=== PATIENT | female | born 1930 | race Caucasian/White ===

== ENCOUNTER 2016-10-01 20:25 | Inpatient (IN) | payer OTHER ==
--- NOTE | 2016-10-01 20:33 | DR.GENAD ---
HPI - Complaint/Symptoms Chief Complaint Doctors Comments: Daughter states she came home from work and found her on the floor with a cereal box on the floor with her with problem with her speech, right facial weakness; talking out of her head and not able to stand. States she left for work around 6am and the patient was still asleep and she usually gets up around 8am and have breakfast then clean the kitchen. States patient states she was on the floor for a long time. Family do not think she ate or took her medicines today. She is a patient of Dr. Ponce and had a stroke 2003 and was on Plavix and aspirin but the Plavix was stopped 3-4 years and the aspirin was stopped several months ago. She is a diabetic taking pills for her glucose. 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 Family denies any urine or fecal incontinence. - Nurses notes reviewed Nurses Notes Review: Yes - Source History Provided: Family Member - Mode of Arrival Mode of Arrival: EMS - Duration Duration: Constant How lon Duration: Hours - Location Location: right sided weakness hands and legs - Severity Severity: Moderate - Modifying Factors Worsens:: nothing Improves:: nothing PMH - PMH Past Medical History: Diabetes, Hypertension Past Surgical History: Yes Surgical History: Angioplasty/Stents - Family History Family Medical History: Cancer, [place] - Social History Do you use any recreational Drugs:: No ROS - Review of Systems Constitutional: No Symptoms Reported, Weakness Eyes: No Symptoms Reported ENTM: No Symptoms Reported Respiratoy: No Symptoms Reported Cardiovascular: No Symptoms Reported Gastrointestinal/Abdominal: No Symptoms Reported Genitourinary: No Symptoms Reported Neurological: No Symptoms Reported Musculoskeletal: No Symptoms Reported Integumentary: No Symptoms Reported Hematologic/Lymphatic: No Symptoms Reported Endocrine: No Symptoms Reported Psychiatric: No Symptoms Reported PE - Vital Signs Vitals: Temperature 98.8 F Pulse Rate 100 Respiratory Rate 16 Blood Pressure 126/85 O2 Sat by Pulse Oximetry 96 - General Limitations: Altered Mental Status (lethargic; follows command; responds to verbal stimuli) General Appearance: Lethargic, In Distress (moderate) - Head Head Exam: Normal Inspection, Atraumatic, Normocephalic - Eyes Eye exam: Normal Appearance, PERRL, EOMI. negative: Scleral Icterus, Conjunctival Injection, Nystagmus, Miosis, Mydrasis, Periorbital Swelling, Periorbital Tenderness, Other - ENT ENT Exam: Normal Exam, Normal Oropharynx, Normal External Ear Exam, Mucous Membranes Moist, TM's Normal Bilaterally (patient with dentures) External Ear Exam: Normal External Inspection TM/Canal Exam: Bilateral Normal Nose Exam: Normal Nose Exam Mouth Exam: Normal Inspection. negative: Drooling (right facial weakness) Throat Exam: Normal Inspection - Neck Neck Exam: Normal Inspection, Full ROM, Trachea Midline. negative: Tenderness, Meningismus, Lymphadenopathy, Thyromegaly, Other - Chest Chest Inspection: Normal Inspection, Symmetric Chest Wall Rise - Respiratory Respiratory Exam: Normal Lung Sounds Bilat Respiratory Exam: Bilateral Clear to Auscultation - Cardiovascular Cardiovascular Exam: Regular Rate, Normal Rhythm, Normal Heart Sounds, Systolic Murmur - Abdominal Exam Abdominal Exam: Normal Inspection, Normal Bowel Sounds, Soft. negative: Distention, Tenderness, Guarding, Rebound, Rigidity, Dimnished Bowel Sounds, Hyperactive Bowel Sounds, Hypoactive Bowel Sounds, Organomegaly, Trauma, Incision, Ascites, Mass, Bruit, Pulsatile Mass, Hernia, Other Abdominal Tenderness: negative: RUQ, RLQ, LUQ, LLQ, Epigastrium, Suprapubic, Diffuse, Mild, Moderate, Severe, Other - Extremities Extremities Exam: Normal Inspection, Normal Capillary Refill. negative: Full ROM (right hemiparesis hand and legs), Edema, Joint Swelling, Calf Tenderness - Back Back Exam: Normal Inspection, Full ROM - Neurologic Neurological Exam: Motor Sensory Deficit (right hemiparesis; hand and leg weakness, unable to lift legs from bed on right side). negative: Alert ( lethargic), Oriented X3 (responds to name), CN II-XII Intact (speech aphasia; right hemiiplegis), Normal Gait (gait not tested), Reflexes Normal (bilateral bibanski) - Psychiatric Psychiatric Exam: Normal Affect, Normal Mood - Skin Skin Exam: Warm, Dry, Intact, Normal Color ROR - Labs Reviewed Laboratory Results Reviewed?: Yes (all labs and x-ray results reviewed and discussed with family) Result Diagrams: 10/01/16 20:25 10/01/16 20:25 Laboratory: WBC 20.0 X10^3/uL (3.6-10.0) H 10/01/16 20:25 RBC 5.04 X10^6/uL (3.5-5.4) 10/01/16 20:25 Hgb 14.6 g/dL (12.0-16.0) 10/01/16 20: Hct 44.5 % (36.0-47.0) 10/01/16 20: MCV 88.4 fL (80.0-100.0) 10/01/16 20: MCH 29.1 pg (27.0-34.0) 10/01/16 20: MCHC 32.9 g/dL (33.0-35.0) L 10/01/16 20: RDW 13.2 % (11.6-16.5) 10/01/16: Plt Count 275 X10^3/uL (150.0-450.0) 10/01/16: Plt Count Comment Adequate (ADEQUATE) 10/01/16: MPV 9.4 fL (7.4-11.0) 10/01/16 20: Neut % 94.8 % (42.0-75.0) H 10/01/16 20: Lymph % 2.9 % (21.0-51.0) L 10/01/16 20: [place] % 2.0 % (0.0-13.0) 10/01/16 20: Eos % 0.0 % (0.9-2.9) L 10/01/16 20: Baso % 0.3 % (0.2-1.0) 10/01/16 20: Neut # 18.9 x10^3/uL (2.2-4.8) H 10/01/16 20: Lymph # 0.6 X10^3/uL (1.3-2.9) L 10/01/16 20: [place] # 0.4 x10^3/uL (0.3-0.8) 10/01/16 20: Eos # 0.0 x10^3/uL (0.0-0.2) 10/01/16 20: Baso # 0.1 X10^3/uL (0.0-0.1) 10/01/16 20: Absolute Nucleated RBC 0.0 /100WBC 10/01/16 20:25 Total Counted 100 10/01/16 20:25 Neutrophils % (Manual) 97 % (39-76) H 10/01/16 20:25 Lymphocytes % (Manual) 3 % (13-43) L 10/01/16 20:25 Plt Morphology Comment Normal (NORMAL) 10/01/16 20:25 RBC Morphology Normal (NORMAL) 10/01/16 20:25 INR Target Range - 10/01/16 20:25 INR 1.09 (0.8-1.3) 10/01/16 20:25 PTT 25.3 SECONDS (22.9-36.5) 10/01/16 20:25 PTT Comment - 10/01/16 20:25 Sodium 128 mmol/L (136-145) L 10/01/16 20:25 Corrected Sodium 138 mmol/L (136-145) 10/01/16 20:25 Potassium 4.5 mmol/L (3.5-5.1) 10/01/16 20:25 Chloride 92 mmol/L (98-107) L 10/01/16 20:25 Carbon Dioxide 22.8 mmol/L (21-32) 10/01/16 20:25 BUN 32 mg/dL (7-18) H 10/01/16 20:25 Creatinine 1.99 mg/dL (0.55-1.02) H 10/01/16 20:25 Est GFR (MDRD) Af Amer 31 (>60) L 10/01/16 20:25 Est GFR (MDRD) Non-Af 25 (>60) L 10/01/16 20:25 Glucose 507 mg/dL (65-99) H* 10/01/16 20:25 Calcium 9.7 mg/dL (8.5-10.1) 10/01/16 20:25 Corrected Calcium TNP 10/01/16 20:25 Magnesium 1.5 mg/dL (1.7-2.9) L 10/01/16 20:25 Total Bilirubin 0.90 mg/dL (0.2-1.0) 10/01/16 20:25 AST 27 Units/L (15-37) 10/01/16 20:25 ALT 17 Units/L (12-78) 10/01/16 20:25 Alkaline Phosphatase 99 Units/L (46-116) 10/01/16 20:25 Creatine Kinase 60 Units/L (26-192) 10/01/16 20:25 CK-MB (CK-2) 1.0 ng/mL (0-4.0) 10/01/16 20:25 CK/CKMB % Calc 1.7 % (<4) 10/01/16 20:25 Troponin I < 0.02 ng/mL (0-1.5) 10/01/16 20:25 Total Protein 8.5 g/dL (6.4-8.2) H 10/01/16 20:25 Albumin 3.7 g/dL (3.4-5.0) 10/01/16 20:25 Globulin 4.8 g/dL (2.5-4.5) H 10/01/16 20:25 Albumin/Globulin Ratio 0.8 Ratio (1.1-2.1) L 10/01/16 20:25 Specimen Type Catherized urine 10/01/16 22:00 Urine Color Yellow (YELLOW) 10/01/16 22:00 Urine Appearance Clear (CLEAR) 10/01/16 22:00 Urine pH 5.0 (5.0 - 8.0) 10/01/16 22:00 Ur Specific [place] 1.015 (1.000-1.030) 10/01/16 22:00 Urine Protein 2+ (NEGATIVE) 10/01/16 22:00 Urine Glucose (UA) 4+ (NEGATIVE) 10/01/16 22:00 Urine Ketones 2+ (NEGATIVE) 10/01/16 22:00 Urine Occult Blood 1+ (NEGATIVE) 10/01/16 22:00 Urine Nitrite Negative (NEGATIVE) 10/01/16 22:00 Urine Bilirubin Negative (NEGATIVE) 10/01/16 22:00 Urine Urobilinogen Normal (NORMAL) 10/01/16 22:00 Ur Leukocyte Esterase Negative (NEGATIVE) 10/01/16 22:00 Urine RBC 0-3 /HPF (NEGATIVE) 10/01/16 22:00 Urine WBC 0-3 /HPF (NEGATIVE) 10/01/16 22:00 Ur Squamous Epith Cells Rare /HPF (NEGATIVE) 10/01/16 22:00 Urine Bacteria Negative /HPF (NEGATIVE) 10/01/16 22:00 Ur Culture Indicated? No/not indicated 10/01/16 22:00 Urine Opiates Screen Negative (NEG=<300) 10/01/16 22:00 Urine Methadone Screen Negative (NEG=<300) 10/01/16 22:00 Ur Barbiturates Screen Negative (NEG=<200) 10/01/16 22:00 Ur Phencyclidine Scrn Negative (NEG=<25) 10/01/16 22:00 Ur Amphetamines Screen Negative (NEG=<1000) 10/01/16 22:00 U Benzodiazepines Scrn Negative (NEG=<200) 10/01/16 22:00 Urine Cocaine Screen Negative (NEG=<300) 10/01/16 22:00 U Marijuana (THC) Screen Negative (NEG=<50) 10/01/16 22:00 - XRAY XRAY Interpreted by: Radiologist (CT head: Subacute infarct of left thalamus, occipital lobe parietal lobe and temporal oobe. Chronic periventricular white matter disease.) XRAY Findings: CXR: Chronic celso parenchymal changes bilaterally, non-specific, - Diagnosis Discharge Problem: Acute thromboembolic cerebrovascular accident, Right hemiplegia, Hyperosmolar non-ketotic state in patient with type 2 diabetes mellitus, Hyponatremia, Atrial fibrillation with rapid ventricular response Leukocytosis Qualifiers: Leukocytosis type: unspecified Qualified Code(s): D72.829 - Elevated white blood cell count, unspecified - Discharge Plan Disposition: ADMITTED INPATIENT Condition: Stable - Follow ups/Referrals Follow ups/Referrals: NFD,None [STAFF PHYSICIAN] - 3 days - Instructions
[2016-10-01 20:40] LABS: BASOPHILS # (AUTO) 0.1 X10^3/uL (0.0-0.1); BASOPHILS % (AUTO) 0.3 % (0.2-1.0); HEMATOCRIT 44.5 % (36.0-47.0); HEMOGLOBIN 14.6 g/dL (12.0-16.0); LYMPHOCYTES # (AUTO) 0.6 X10^3/uL (1.3-2.9); LYMPHOCYTES % (AUTO) 2.9 % (21.0-51.0); MEAN CORPUSCULAR HEMOGLOBIN 29.1 pg (27.0-34.0); MEAN CORPUSCULAR HGB CONC 32.9 g/dL (33.0-35.0); MEAN CORPUSCULAR VOLUME 88.4 fL (80.0-100.0); MEAN PLATELET VOLUME 9.4 fL (7.4-11.0); MONOCYTES # (AUTO) 0.4 x10^3/uL (0.3-0.8); NEUTROPHILS # (AUTO) 18.9 x10^3/uL (2.2-4.8); NEUTROPHILS % (AUTO) 94.8 % (42.0-75.0); PLATELET COUNT 275 X10^3/uL (150.0-450.0); RED BLOOD COUNT 5.04 X10^6/uL (3.5-5.4); RED CELL DISTRIBUTION WIDTH 13.2 % (11.6-16.5)
[2016-10-01 20:52] LABS: PLATELET MORPHOLOGY COMMENT NORMAL (NORMAL)
[2016-10-01 20:57] LABS: ALANINE AMINOTRANSFERASE 17 Units/L (12-78); ALBUMIN 3.7 g/dL (3.4-5.0); ALKALINE PHOSPHATASE 99 Units/L (46-116); ASPARTATE AMINO TRANSFERASE 27 Units/L (15-37); BLOOD UREA NITROGEN 32 mg/dL (7-18); CALCIUM 9.7 mg/dL (8.5-10.1); CARBON DIOXIDE 22.8 mmol/L (21-32); CHLORIDE 92 mmol/L (98-107); CKMB % 1.7 % (<4); COR NA(FOR HYPERGLY) 138 mmol/L (136-145); CREATINE KINASE 60 Units/L (26-192); CREATININE 1.99 mg/dL (0.55-1.02); MAGNESIUM 1.5 mg/dL (1.7-2.9); SODIUM 128 mmol/L (136-145); TOTAL PROTEIN 8.5 g/dL (6.4-8.2); TROPONIN I < 0.02 ng/mL (0-1.5); eGFR BLACK RACES 31 (>60); eGFR NON BLACK RACES 25 (>60)
[2016-10-01 21:00] LABS: GLUCOSE 507 mg/dL (65-99)
--- NOTE | 2016-10-01 21:13 | CT ---
HISTORY: Altered mental status Study: CT brain without contrast Comparison: None Technique: Multiple axial images of the brain were obtained from the skull base to the vertex without administr ation of IV contrast. Findings: No acute intraparenchymal hemorrhage or mass can be identified. No extra-axial fluid collections ar e seen. There is a large low-attenuation area in the left posterior parietal lobe, thalamus left oc cipital lobe and temporal lobe compatible with a subacute infarct. There is also an older area of en cephalomalacia in the left temporoparietal region as well.. The ventricular system is symmetric and nondilated. There is chronic periventricular white matter disease observed and age-appropriate gen eralized atrophy. IMPRESSION: 1. Subacute infarct involving the left thalamus, occipital lobe parietal lobe and appear temporal l obe as above. Followup MRI would be of benefit definitive assessment. 2. Chronic periventricular white matter disease likely on the basis of small vessel ischemic change . 3. Age-appropriate atrophic changes are seen. Reported By:
--- NOTE | 2016-10-01 21:14 | RAD ---
EXAM: Chest X-ray INDICATION: Altered mental status COMPARISION: No prior TECHNIQUE: Single view FINDINGS: Chronic lung parenchymal changes are present bilaterally. No focal lung parenchymal abnormality rochelle ntified. The cardiac silhouette is mildly enlarged. The mediastinum is normal. The regional skele ton is intact. IMPRESSION: Chronic lung parenchymal changes are seen bilaterally, non-specific. No acute abnormality. Reported By:
[2016-10-01] MEDS ORDERED: NS 1000 ML 1,000 ML IV ONE (21:39)
[2016-10-01] MEDS ORDERED: HUMULIN R IV STA (21:39)
[2016-10-01 22:14] LABS: BILIRUBIN,URINE NEGATIVE (NEGATIVE); BLOOD/HEMOGLOBIN,URINE 1+ (NEGATIVE); GLUCOSE, URINE 4+ (NEGATIVE); KETONES,URINE 2+ (NEGATIVE); LEUKOCYTE ESTERASE ,URINE NEGATIVE (NEGATIVE); NITRITES,URINE NEGATIVE (NEGATIVE); PROTEIN,URINE 2+ (NEGATIVE); UROBILINOGEN,URINE NORMAL (NORMAL)
[2016-10-01 22:27] LABS: APPEARANCE,URINE CLEAR (CLEAR); BACTERIA,URINE NEGATIVE /HPF (NEGATIVE); COLOR,URINE YELLOW (YELLOW); RBC,URINE 0-3 /HPF (NEGATIVE); SQUAMOUS EPITHELIAL CELL,UR RARE /HPF (NEGATIVE)
[2016-10-01] MEDS ORDERED: LANTUS SC ONE (22:46)
[2016-10-01] MEDS ORDERED: HUMULIN R 100 UNITS in NS 100 ML IV 100 ML IV PRN (22:48)
[2016-10-01] MEDS ORDERED: NS 100 ML IV 100 ML IV ONE (23:38)
[2016-10-02] MEDS ORDERED: HUMULIN R IV PRN
[2016-10-02] MEDS ORDERED: MAGNESIUM SULFATE 1 GM/100 ML IV PRN ×2
[2016-10-02] MEDS ORDERED: NS + KCL 40 MEQ/L 1,000 ML IV PRN
[2016-10-02] MEDS ORDERED: NS 1000 ML 1,000 ML IV PRN
[2016-10-02] MEDS ORDERED: SODIUM BICARBONATE 8.4% INJ ADULT IVP PRN
[2016-10-02] MEDS ORDERED: D5 1/2 NS + KCL 20 MEQ/L 1,000 ML IV PRN
[2016-10-02] MEDS ORDERED: D50W ABBOJECT SYR IV PRN ×2 (00:06)
[2016-10-02] MEDS ORDERED: HUMULIN R 100 UNITS in NS 100 ML IV 100 ML IV PRN ×3 (00:06)
[2016-10-02 01:23] VITALS: BMI 29.0
[2016-10-02] MEDS: LOVENOX INJ 80 MG SYR SC SCH ×2 (01:33→09:36)
[2016-10-02] MEDS: NS 1000 ML 1,000 ML IV SCH ×2 (03:00→16:45)
[2016-10-02 05:56] LABS: BASOPHILS # (AUTO) 0.1 X10^3/uL (0.0-0.1); BASOPHILS % (AUTO) 0.3 % (0.2-1.0); EOSINOPHILS % (AUTO) 0.1 % (0.9-2.9); HEMATOCRIT 36.9 % (36.0-47.0); HEMOGLOBIN 12.4 g/dL (12.0-16.0); LYMPHOCYTES % (AUTO) 4.7 % (21.0-51.0); MEAN CORPUSCULAR HEMOGLOBIN 29.1 pg (27.0-34.0); MEAN CORPUSCULAR HGB CONC 33.5 g/dL (33.0-35.0); MEAN CORPUSCULAR VOLUME 86.8 fL (80.0-100.0); MEAN PLATELET VOLUME 9.2 fL (7.4-11.0); MONOCYTES # (AUTO) 1.1 x10^3/uL (0.3-0.8); MONOCYTES % (AUTO) 5.2 % (0.0-13.0); NEUTROPHILS # (AUTO) 18.5 x10^3/uL (2.2-4.8); NEUTROPHILS % (AUTO) 89.7 % (42.0-75.0); PLATELET COUNT 266 X10^3/uL (150.0-450.0); RED BLOOD COUNT 4.25 X10^6/uL (3.5-5.4); RED CELL DISTRIBUTION WIDTH 13.1 % (11.6-16.5)
[2016-10-02 05:59] LABS: WHITE BLOOD COUNT 20.6 X10^3/uL (3.6-10.0)
[2016-10-02 06:03] LABS: MAGNESIUM 1.4 mg/dL (1.7-2.9); PHOSPHORUS 2.6 mg/dL (2.6-4.7)
[2016-10-02 06:07] LABS: CHOL/HDL RATIO 6.1 (0.0-5.0)
[2016-10-02] MEDS ORDERED: HUMULIN R ONE (06:31)
[2016-10-02 06:35] LABS: HEMOGLOBIN A1C 10.1 % (4.5-6.2)
[2016-10-02 06:37] LABS: ALBUMIN 3.3 g/dL (3.4-5.0); CALCIUM 9.2 mg/dL (8.5-10.1); CARBON DIOXIDE 22.2 mmol/L (21-32); COR CA(FOR HYPOALB) 9.8 mg/dL (8.5-10.1); CREATININE 1.96 mg/dL (0.55-1.02); TOTAL PROTEIN 6.9 g/dL (6.4-8.2)
[2016-10-02] MEDS: HUMULIN R SUBCUT PRN ×2 (06:49→21:01)
[2016-10-02] MEDS: ROCEPHIN VIAL 1 GM 1 GM in NS 50 ML IV + SPIKE MINIBAG* 50 ML IV SCH (09:36)
--- NOTE | 2016-10-02 14:30 | CT ---
HISTORY: Neck pain and injury. Study: CT cervical spine without contrast Comparison: none. Technique: Multiple axial images of the C-spine were obtained without the administration of IV cont rast. Sagittal and coronal reformats were performed and reviewed. Findings: Alignment of the cervical spine is within normal limits. No evidence for acute fracture or subluxat ion can be identified. No central canal compromise by bony osteophyte formation or soft tissue comp onents can be identified. There is moderate degenerative, diffuse, cervical spondylosis and diffuse, moderate degenerative cervical facet joint DJD observed. No locked facet joint is seen. There is no visible subluxation or posterior element abnormality of the cervical spine. No lytic bony lesions o r endplate erosive changes are seen. The surrounding paraspinous and C-spine soft tissues are unrema rkable in their noncontrasted appearance. IMPRESSION: 1. Negative exam of the cervical spine for acute fracture or compression deformity. 2. Moderate cervical spondylosis and degenerative facet joint DJD. Reported By:
[2016-10-02] MEDS ORDERED: SNACK - Diabetic Appropriate PO SCH ×3 (20:00)
[2016-10-02] MEDS: SNACK - Diabetic Appropriate PO SCH (20:35)
[2016-10-02] MEDS: ELIQUIS PO SCH (20:40)
[2016-10-02] MEDS: LANTUS SC SCH (20:41)
[2016-10-03] MEDS: NS 1000 ML 1,000 ML IV SCH ×3 (03:37→22:14)
[2016-10-03] MEDS: HUMULIN R SUBCUT PRN ×3 (06:02→17:27)
[2016-10-03 07:06] LABS: CALCIUM 8.6 mg/dL (8.5-10.1); CARBON DIOXIDE 21.6 mmol/L (21-32); CREATININE 1.9 mg/dL (0.55-1.02)
[2016-10-03 07:42] LABS: BASOPHILS # (AUTO) 0.1 X10^3/uL (0.0-0.1); BASOPHILS % (AUTO) 0.4 % (0.2-1.0); HEMOGLOBIN 12.1 g/dL (12.0-16.0); LYMPHOCYTES # (AUTO) 1.1 X10^3/uL (1.3-2.9); LYMPHOCYTES % (AUTO) 6.9 % (21.0-51.0); MEAN CORPUSCULAR HEMOGLOBIN 29.1 pg (27.0-34.0); MEAN CORPUSCULAR HGB CONC 33.7 g/dL (33.0-35.0); MEAN CORPUSCULAR VOLUME 86.3 fL (80.0-100.0); MEAN PLATELET VOLUME 9.2 fL (7.4-11.0); MONOCYTES # (AUTO) 0.7 x10^3/uL (0.3-0.8); MONOCYTES % (AUTO) 4.3 % (0.0-13.0); NEUTROPHILS # (AUTO) 14.1 x10^3/uL (2.2-4.8); NEUTROPHILS % (AUTO) 88.4 % (42.0-75.0); PLATELET COUNT 210 X10^3/uL (150.0-450.0); RED BLOOD COUNT 4.17 X10^6/uL (3.5-5.4); RED CELL DISTRIBUTION WIDTH 13.3 % (11.6-16.5)
[2016-10-03] MEDS: ELIQUIS PO SCH ×3 (08:18→22:14)
[2016-10-03] MEDS: ROCEPHIN VIAL 1 GM 1 GM in NS 50 ML IV + SPIKE MINIBAG* 50 ML IV SCH (08:24)
[2016-10-03 08:44] LABS: ALBUMIN 2.8 g/dL (3.4-5.0); BILIRUBIN,DIRECT 0.15 mg/dL (0-0.2); MAGNESIUM 1.6 mg/dL (1.7-2.9); TOTAL PROTEIN 6.8 g/dL (6.4-8.2)
[2016-10-03] MEDS ORDERED: PLAVIX PO SCH (10:00)
[2016-10-03] MEDS ORDERED: ELIQUIS PO SCH (10:00)
[2016-10-03] MEDS ORDERED: PHARMACY CONSULT - DOSE _____ XX SCH (10:00)
[2016-10-03] MEDS ORDERED: NORVASC TAB 5 MG PO SCH (10:00)
[2016-10-03] MEDS: LOVENOX INJ 80 MG SYR SC SCH ×2 (10:08→20:52)
[2016-10-03] MEDS ORDERED: LOPRESSOR INJ 5 MG AMP ONE (11:39)
[2016-10-03] MEDS: LOPRESSOR INJ 5 MG AMP IVP SCH ×3 (11:45→20:51)
--- NOTE | 2016-10-03 12:37 | PCM.PROG ---
Progress Note - Progress Note for Day of Date: 10/03/16 - Subjective Subjective: PATIENT IS ADMITTED WITH ACUTE CVA. BRAIN CT REPORTS A SIGNIFICANT STROKE INVOLVING THE LEFT THALMUS, OCCIPITAL LOBE, PARIETAL LOBE, AND TEMPORAL LOBE. PATIENT RESTS IN BED AND DOESN'T RESPOND TO VERBAL OR TACTILE STIMULI. PATIENT GAZES TO HER LEFT AND NEVER MAKES EYE CONTACT WHEN SPOKEN TO. PATIENT HAS PROFOUND IMPAIRED ORAL-MOTOR FUNCTION. SPEECH THERAPY IS RECOMMENDING TO HOLD PATIENT NPO AT THIS TIME. PATIENT IS NOTED WITH RIGHT HEMISPATIAL NEGLECT. DAUGHTER AT BEDSIDE. WE DISCUSS FURTHER TREATMENT, DAUGHTER VOICES UNDERSTANDING. CBC WNL EXCEPT: WBC 16.0. CMP WNL EXCEPT: BUN/CREAT 34/1.90, GFR 27, GLUCOSE 232, MAGNESIUM 1.6, ALBUMIN 2.8. WE WILL HOLD PO MEDICATIONS, START LOVENOX, AND OBTAIN MRI OF BRAIN TODAY. WE WILL CONTINUE TO MONITOR AND FOLLOW UP IN AM WITH LABS. - Past Medical Family Social History Past Med/Fam/Surg Hx: No changes since H&P Allergies: Allergies No Known Drug Allergy Allergy (Verified 10/01/16 23:50) - Review of Systems ROS: No change since H&P - Vital Signs and I&O's Vital Signs: Temperature 97.5 F Pulse Rate [Right Brachial] 95 Respiratory Rate 19 Blood Pressure [Right Arm] 170/81 Blood Pressure 188/89 O2 Sat by Pulse Oximetry 100 Intake and Output: Intake & Output 10/01/16 10/02/16 10/03/16 10/04/16 10:59 11:59 11:59 11:59 Intake Total 3950 Output Total 1900 Balance 2049 - Physical Exam Oriented: Unable to test Eyes: Normal. negative: Discharge, Redness Ear: Normal. negative: Swelling, Ecchymosis, Hemotypanum, Abrasion, Laceration Nose: Normal. negative: Injected, Discharge, Blood Throat: Dry. negative: Tonsillar Hypertrophy, Red, Exudate Respiratory: Normal Cardiovascular: Irregular (Irreg, irreg). negative: Murmur, Edema : Normal. negative: Dysuria, Hematuria, Frequency, Discharge, Bleeding, Auscultation: Bowel Sounds: Decreased. negative: Bruit Palpation: Normal. negative: Spleen Enlarged, Liver Enlarged, Mass Pulsatile Tenderness: Normal. negative: Rebound, Guarding, Rigidity Skin: Decreased Turgur. negative: Diaphoresis, Wound, Bruising, Ecchymosis Musculoskeletal: Instability (Non-ambulatory) Mood Description: Flat Affect: Flat Speech Pattern: Aphasic - Laboratory and Diagnostics Result Diagrams: 10/03/16 06:50 10/03/16 06:50 Labs: Laboratory WBC 16.0 X10^3/uL (3.6-10.0) H 10/03/16 06:50 RBC 4.17 X10^6/uL (3.5-5.4) 10/03/16 06:50 Hgb 12.1 g/dL (12.0-16.0) 10/03/16 06:50 Hct 36.0 % (36.0-47.0) 10/03/16 06:50 MCV 86.3 fL (80.0-100.0) 10/03/16 06:50 MCH 29.1 pg (27.0-34.0) 10/03/16 06:50 MCHC 33.7 g/dL (33.0-35.0) 10/03/16 06:50 RDW 13.3 % (11.6-16.5) 10/03/16 06:50 Plt Count 210 X10^3/uL (150.0-450.0) 10/03/16 06:50 Plt Count Comment Adequate (ADEQUATE) 10/01/16 20:25 MPV 9.2 fL (7.4-11.0) 10/03/16 06:50 Neut % 88.4 % (42.0-75.0) H 10/03/16 06:50 Lymph % 6.9 % (21.0-51.0) L 10/03/16 06:50 [place] % 4.3 % (0.0-13.0) 10/03/16 06:50 Eos % 0.0 % (0.9-2.9) L 10/03/16 06:50 Baso % 0.4 % (0.2-1.0) 10/03/16 06:50 Neut # 14.1 x10^3/uL (2.2-4.8) H 10/03/16 06:50 Lymph # 1.1 X10^3/uL (1.3-2.9) L 10/03/16 06:50 [place] # 0.7 x10^3/uL (0.3-0.8) 10/03/16 06:50 Eos # 0.0 x10^3/uL (0.0-0.2) 10/03/16 06:50 Baso # 0.1 X10^3/uL (0.0-0.1) 10/03/16 06:50 Absolute Nucleated RBC 0.0 /100WBC 10/03/16 06:50 Total Counted 100 10/01/16 20:25 Neutrophils % (Manual) 97 % (39-76) H 10/01/16 20:25 Lymphocytes % (Manual) 3 % (13-43) L 10/01/16 20:25 Plt Morphology Comment Normal (NORMAL) 10/01/16 20:25 RBC Morphology Normal (NORMAL) 10/01/16 20:25 INR Target Range - 10/01/16 20:25 INR 1.09 (0.8-1.3) 10/01/16 20:25 PTT 25.3 SECONDS (22.9-36.5) 10/01/16 20:25 PTT Comment - 10/01/16 20:25 Fibrinogen 438 mg/dL (239-489) 10/02/16 05:25 Sodium 141 mmol/L (136-145) 10/03/16 06:50 Corrected Sodium 144 mmol/L (136-145) 10/03/16 06:50 Potassium 3.6 mmol/L (3.5-5.1) 10/03/16 06:50 Chloride 107 mmol/L (98-107) 10/03/16 06:50 Carbon Dioxide 21.6 mmol/L (21-32) 10/03/16 06:50 BUN 34 mg/dL (7-18) H 10/03/16 06:50 Creatinine 1.90 mg/dL (0.55-1.02) H 10/03/16 06:50 Est GFR (MDRD) Af Amer 32 (>60) L 10/03/16 06:50 Est GFR (MDRD) Non-Af 27 (>60) L 10/03/16 06:50 Glucose 232 mg/dL (65-99) H 10/03/16 06:50 Hemoglobin A1c 10.1 % (4.5-6.2) H 10/02/16 05:25 Calcium 8.6 mg/dL (8.5-10.1) 10/03/16 06:50 Corrected Calcium 9.8 mg/dL (8.5-10.1) 10/02/16 05:25 Phosphorus 2.6 mg/dL (2.6-4.7) 10/02/16 05:25 Magnesium 1.6 mg/dL (1.7-2.9) L 10/03/16 06:50 Total Bilirubin 0.50 mg/dL (0.2-1.0) 10/03/16 06:50 Direct Bilirubin 0.15 mg/dL (0-0.2) 10/03/16 06:50 Indirect Bilirubin 0.35 mg/dL (0.2-0.8) 10/03/16 06:50 AST 40 Units/L (15-37) H 10/03/16 06:50 ALT 18 Units/L (12-78) 10/03/16 06:50 Alkaline Phosphatase 71 Units/L (46-116) 10/03/16 06:50 Creatine Kinase 60 Units/L (26-192) 10/01/16 20:25 CK-MB (CK-2) 1.0 ng/mL (0-4.0) 10/01/16 20:25 CK/CKMB % Calc 1.7 % (<4) 10/01/16 20:25 Troponin I < 0.02 ng/mL (0-1.5) 10/01/16 20:25 Total Protein 6.8 g/dL (6.4-8.2) 10/03/16 06:50 Albumin 2.8 g/dL (3.4-5.0) L 10/03/16 06:50 Globulin 4.0 g/dL (2.5-4.5) 10/03/16 06:50 Albumin/Globulin Ratio 0.7 Ratio (1.1-2.1) L 10/03/16 06:50 Triglycerides 164 mg/dL (0-150) H 10/02/16 05:25 Cholesterol 215 mg/dL (0-200) H 10/02/16 05:25 LDL Cholesterol, Calc 147 mg/dL (0-100) H 10/02/16 05:25 HDL Cholesterol 35 mg/dL (40-60) L 10/02/16 05:25 Cholesterol/HDL Ratio 6.1 (0.0-5.0) H 10/02/16 05:25 Amylase 30 Units/L (25-115) 10/02/16 05:25 Lipase 108 Units/L (73-393) 10/02/16 05:25 Specimen Type Catherized urine 10/01/16 22:00 Urine Color Yellow (YELLOW) 10/01/16 22:00 Urine Appearance Clear (CLEAR) 10/01/16 22:00 Urine pH 5.0 (5.0 - 8.0) 10/01/16 22:00 Ur Specific [place] 1.015 (1.000-1.030) 10/01/16 22:00 Urine Protein 2+ (NEGATIVE) 10/01/16 22:00 Urine Glucose (UA) 4+ (NEGATIVE) 10/01/16 22:00 Urine Ketones 2+ (NEGATIVE) 10/01/16 22:00 Urine Occult Blood 1+ (NEGATIVE) 10/01/16 22:00 Urine Nitrite Negative (NEGATIVE) 10/01/16 22:00 Urine Bilirubin Negative (NEGATIVE) 10/01/16 22:00 Urine Urobilinogen Normal (NORMAL) 10/01/16 22:00 Ur Leukocyte Esterase Negative (NEGATIVE) 10/01/16 22:00 Urine RBC 0-3 /HPF (NEGATIVE) 10/01/16 22:00 Urine WBC 0-3 /HPF (NEGATIVE) 10/01/16 22:00 Ur Squamous Epith Cells Rare /HPF (NEGATIVE) 10/01/16 22:00 Urine Bacteria Negative /HPF (NEGATIVE) 10/01/16 22:00 Ur Culture Indicated? No/not indicated 10/01/16 22:00 Urine Opiates Screen Negative (NEG=<300) 10/01/16 22:00 Urine Methadone Screen Negative (NEG=<300) 10/01/16 22:00 Ur Barbiturates Screen Negative (NEG=<200) 10/01/16 22:00 Ur Phencyclidine Scrn Negative (NEG=<25) 10/01/16 22:00 Ur Amphetamines Screen Negative (NEG=<1000) 10/01/16 22:00 U Benzodiazepines Scrn Negative (NEG=<200) 10/01/16 22:00 Urine Cocaine Screen Negative (NEG=<300) 10/01/16 22:00 U Marijuana (THC) Screen Negative (NEG=<50) 10/01/16 22:00 - Plan (1) Acute thromboembolic cerebrovascular accident Status: Acute Plan: START PLAVIX, ELIQUIS, AND NORVASC WHEN PATIENT IS ABLE TO SWALLOW; START LOVENOX, MRI OF BRAIN TODAY, CONTINUE TO MONITOR. (2) Hyponatremia Status: Acute Plan: CONTINUE IV FLUIDS, MONTIOR LABS. (3) Leukocytosis Status: Acute Qualifiers: Leukocytosis type: unspecified Qualified Code(s): D72.829 - Elevated white blood cell count, unspecified Plan: CONTINUE ROCEPHIN, MONITOR. (4) Impaired swallowing Status: Acute Plan: HOLD NPO, CONTINUE TO MONITOR. (5) Right hemiplegia Status: Acute Plan: ABOVE. (6) Atrial fibrillation Status: Acute Qualifiers: Atrial fibrillation type: A Plan: START LOPRESSOR IV, MONITOR ON TELEMETRY. (7) Diabetes mellitus, type II Status: Chronic Qualifiers: Diabetes mellitus complication status: with hyperglycemia Diabetes mellitus complication detail: D Diabetic retinopathy severity: D Proliferative retinopathy type: P Diabetes mellitus macular edema: D Diabetes mellitus usp insulin use: without intermodal customer service use Laterality: L Chronic kidney disease stage: C Qualified Code(s): E11.65 - Type 2 diabetes mellitus with hyperglycemia (8) HTN (hypertension) Status: Chronic Qualifiers: Hypertension type: essential hypertension Qualified Code(s): I10 - Essential (primary) hypertension (9) COPD (chronic obstructive pulmonary disease) Status: Chronic Qualifiers: COPD type: unspecified COPD Chronic bronchitis type: C Emphysema type: E Qualified Code(s): J44.9 - Chronic obstructive pulmonary disease, unspecified
[2016-10-03] MEDS: MAGNESIUM SULFATE 1 GM/100 mL PREMIX 1 GM/100 ML BAG IV SCH ×2 (13:43→15:06)
[2016-10-03] MEDS: SNACK - Diabetic Appropriate PO SCH (20:34)
[2016-10-03] MEDS: LANTUS SC SCH (21:04)
[2016-10-04] MEDS: LOPRESSOR INJ 5 MG AMP IVP SCH ×2 (03:25→09:08)
[2016-10-04] MEDS: NS 1000 ML 1,000 ML IV SCH ×3 (06:12→21:07)
[2016-10-04 06:17] LABS: BASOPHILS # (AUTO) 0.1 X10^3/uL (0.0-0.1); BASOPHILS % (AUTO) 0.7 % (0.2-1.0); EOSINOPHILS % (AUTO) 0.4 % (0.9-2.9); HEMATOCRIT 35.3 % (36.0-47.0); HEMOGLOBIN 11.7 g/dL (12.0-16.0); LYMPHOCYTES # (AUTO) 1.3 X10^3/uL (1.3-2.9); LYMPHOCYTES % (AUTO) 11.3 % (21.0-51.0); MEAN CORPUSCULAR HEMOGLOBIN 29.1 pg (27.0-34.0); MEAN CORPUSCULAR HGB CONC 33.2 g/dL (33.0-35.0); MEAN CORPUSCULAR VOLUME 87.7 fL (80.0-100.0); MEAN PLATELET VOLUME 9.1 fL (7.4-11.0); MONOCYTES # (AUTO) 0.7 x10^3/uL (0.3-0.8); MONOCYTES % (AUTO) 5.8 % (0.0-13.0); NEUTROPHILS # (AUTO) 9.6 x10^3/uL (2.2-4.8); NEUTROPHILS % (AUTO) 81.8 % (42.0-75.0); PLATELET COUNT 196 X10^3/uL (150.0-450.0); RED BLOOD COUNT 4.02 X10^6/uL (3.5-5.4); RED CELL DISTRIBUTION WIDTH 13.3 % (11.6-16.5); WHITE BLOOD COUNT 11.7 X10^3/uL (3.6-10.0)
[2016-10-04 06:35] LABS: ALBUMIN 2.5 g/dL (3.4-5.0); CALCIUM 8.5 mg/dL (8.5-10.1); COR CA(FOR HYPOALB) 9.7 mg/dL (8.5-10.1); CREATININE 1.48 mg/dL (0.55-1.02); TOTAL PROTEIN 6.6 g/dL (6.4-8.2)
[2016-10-04] MEDS: ELIQUIS PO SCH (08:13)
--- NOTE | 2016-10-04 08:27 | MRI ---
Indication: CVA. Exam: MRI brain without contrast. Comparison: CT head 10/01/2016. Technique: Routine multiplanar multisequence imaging was performed through the brain without contras t. Findings: The ventricles are mildly enlarged and there is minimal prominence of the cortical sulci. There are punctate areas of abnormal signal along the subcortical and deep white matter of the left parietal lobe with more extensive abnormal signal extending into the left basal ganglia and left occ ipital lobe posteriorly and anteriorly on the diffusion-weighted data set . There is diffuse mild ed norma effacement of the effected cortical sulci which is unchanged and is causing mild mass effect whi ch is most prominent along the basal ganglia . There is mild effacement of the left lateral ventricl e and shift of the midline from left to right of approximately 3-4 mm which is more prominent. There is no extra-axial fluid collection and there is no acute hemorrhage seen . The 7th and 8th nerve co mplexes are symmetric and normal signal intensity. There are several punctate areas of abnormal sign al scattered in the periventricular white matter. There is focal atrophy and abnormal signal along t he left temporal lobe laterally and inferiorly consistent with encephalomalacia from an old infarct which is unchanged . Impression: Small punctate areas of subacute areas of ischemia along the left parietal lobe with more extensive subacute infarction involving the parietal occipital region and extending into the left basal gangli a and left temporal lobe which is causing diffuse mild mass-effect with associated mild shift of the midline from left to right which is more prominent. No intracranial hemorrhage is seen. Old left temporal lobe infarct which is unchanged . Mild atrophy and minimal chronic microischemic changes in the deep white matter. Reported By:
[2016-10-04] MEDS: LOVENOX INJ 80 MG SYR SC SCH ×2 (09:08→21:08)
[2016-10-04] MEDS: ROCEPHIN VIAL 1 GM 1 GM in NS 50 ML IV + SPIKE MINIBAG* 50 ML IV SCH (09:08)
[2016-10-04] MEDS: ALBUMIN HUMAN 25%- 100ML 100 ML IV SCH (09:59)
[2016-10-04] MEDS ORDERED: CATAPRES-TTS-1 TD SCH (10:00)
[2016-10-04] MEDS ORDERED: PROCALAMINE 3 % 1,000 ML IV SCH (10:00)
[2016-10-04] MEDS ORDERED: CLINIMIX 4.25 %/10 % 1,000 ML with MVI INJ (ADULT) 10 ML, TRACE ELEMENTS INJ 10 ML, TPN... IV SCH ×5 (11:00)
[2016-10-04] MEDS: CLINIMIX 4.25 %/10 % 1,000 ML with MVI INJ (ADULT) 10 ML, TRACE ELEMENTS INJ 10 ML, TPN... IV SCH ×10 (14:32→23:17)
--- NOTE | 2016-10-04 15:12 | PCM.PROG ---
Progress Note - Progress Note for Day of Date: 10/04/16 - Subjective Subjective: PATIENT IS NOTED WITH SLIGHT IMPROVEMENT THIS MORNING AND IS ALERT AND FOLLOWING PEOPLE WITH EYES. SHE MOVES HER MOUTH TO SPEAK BUT CONTINUES TO BE UNABLE TO SPEAK. PATIENT CONTINUES WITH PROFOUND IMPAIRED ORAL-MOTOR FUNCTION. PATIENT IS NPO. PATIENT CONTINUES WITH RIGHT HEMISPATIAL NEGLECT. DAUGHTER AT BEDSIDE. WE DISCUSS FURTHER TREATMENT, DAUGHTER VOICES UNDERSTANDING. BLOOD PRESSURE IS ELEVATED, 176/72. CBC WNL EXCEPT: WBC 11.0, H /H 11.7/35.3. CMP WNL EXCEPT: BUN/CREAT 30/1.48, GFR 36, GLUCOSE 147, ALBUMIN 2.5. MAGNESIUM IMPROVED FROM 1.6 TO 2.0 WITH SUPPLEMENTATION OF MAG-RIDERS. MRI OF BRAIN REPORTS: SMALL PUNCTATE AREAS OF SUBACUTE AREAS OF ISCHEMIA ALONG THE LEFT PARIETAL LOBE WITH MORE EXTENSIVE SUBACUTE INFARCTION INVOLVING THE PARIETAL OCCIPITAL REGION AND EXTENDING INTO THE LEFT BASAL GANGLIA AND LEFT TEMPORAL LOBE WITH ASSOCIATED MILD SHIFT OF THE MIDLINE FROM LEFT TO RIGHT; NO INTRACRANIAL HEMORRHAGE. WE WILL CONTINUE TO HOLD PO MEDICATIONS, CONTINUE LOVENOX, AND CONTINUE RANGE OF MOTION EXERCISES. WE WILL START PROCALAMINE, ALBUMIN, CLONIDINE PATCH, AND DISCONTINUE LOPRESSOR IV. WE WILL CONTINUE TO MONITOR AND FOLLOW UP IN AM WITH LABS. - Past Medical Family Social History Past Med/Fam/Surg Hx: No changes since H&P Allergies: Allergies No Known Drug Allergy Allergy (Verified 10/01/16 23:50) - Review of Systems ROS: No change since H&P - Vital Signs and I&O's Vital Signs: Temperature 98.1 F Pulse Rate [Right Brachial] 73 Respiratory Rate 20 Blood Pressure [Right Arm] 177/72 Blood Pressure 187/83 O2 Sat by Pulse Oximetry 99 Intake and Output: Intake & Output 10/02/16 10/03/16 10/04/16 10/05/16 11:59 11:59 11:59 11:59 Intake Total 3950 3031 Output Total 1900 750 Balance 2049 2281 - Physical Exam Oriented: Unable to test Eyes: Normal. negative: Discharge, Redness Ear: Normal. negative: Swelling, Ecchymosis, Hemotypanum, Abrasion, Laceration Nose: Normal. negative: Injected, Discharge, Blood Throat: Dry. negative: Tonsillar Hypertrophy, Red, Exudate Respiratory: Normal Cardiovascular: Irregular (Irreg, irreg). negative: Murmur, Edema : Normal. negative: Dysuria, Hematuria, Frequency, Discharge, Bleeding, Auscultation: Bowel Sounds: Decreased. negative: Bruit Palpation: Normal. negative: Spleen Enlarged, Liver Enlarged, Mass Pulsatile Tenderness: Normal. negative: Rebound, Guarding, Rigidity Skin: Decreased Turgur. negative: Diaphoresis, Wound, Bruising, Ecchymosis Musculoskeletal: Instability (Non-ambulatory) Mood Description: Flat Affect: Flat Speech Pattern: Aphasic - Laboratory and Diagnostics Result Diagrams: 10/04/16 05:35 10/04/16 05:35 Labs: Laboratory WBC 11.7 X10^3/uL (3.6-10.0) H 10/04/16 05:35 RBC 4.02 X10^6/uL (3.5-5.4) 10/04/16 05:35 Hgb 11.7 g/dL (12.0-16.0) L 10/04/16 05:35 Hct 35.3 % (36.0-47.0) L 10/04/16 05:35 MCV 87.7 fL (80.0-100.0) 10/04/16 05:35 MCH 29.1 pg (27.0-34.0) 10/04/16 05:35 MCHC 33.2 g/dL (33.0-35.0) 10/04/16 05:35 RDW 13.3 % (11.6-16.5) 10/04/16 05:35 Plt Count 196 X10^3/uL (150.0-450.0) 10/04/16 05:35 Plt Count Comment Adequate (ADEQUATE) 10/01/16 20:25 MPV 9.1 fL (7.4-11.0) 10/04/16 05:35 Neut % 81.8 % (42.0-75.0) H 10/04/16 05:35 Lymph % 11.3 % (21.0-51.0) L 10/04/16 05:35 [place] % 5.8 % (0.0-13.0) 10/04/16 05:35 Eos % 0.4 % (0.9-2.9) L 10/04/16 05:35 Baso % 0.7 % (0.2-1.0) 10/04/16 05:35 Neut # 9.6 x10^3/uL (2.2-4.8) H 10/04/16 05:35 Lymph # 1.3 X10^3/uL (1.3-2.9) 10/04/16 05:35 Moody # 0.7 x10^3/uL (0.3-0.8) 10/04/16 05:35 Eos # 0.0 x10^3/uL (0.0-0.2) 10/04/16 05:35 Baso # 0.1 X10^3/uL (0.0-0.1) 10/04/16 05:35 Absolute Nucleated RBC 0.0 /100WBC 10/04/16 05:35 Total Counted 100 10/01/16 20:25 Neutrophils % (Manual) 97 % (39-76) H 10/01/16 20:25 Lymphocytes % (Manual) 3 % (13-43) L 10/01/16 20:25 Plt Morphology Comment Normal (NORMAL) 10/01/16 20:25 RBC Morphology Normal (NORMAL) 10/01/16 20:25 INR Target Range - 10/01/16 20:25 INR 1.09 (0.8-1.3) 10/01/16 20:25 PTT 25.3 SECONDS (22.9-36.5) 10/01/16 20:25 PTT Comment - 10/01/16 20:25 Fibrinogen 438 mg/dL (239-489) 10/02/16 05:25 Sodium 142 mmol/L (136-145) 10/04/16 05:35 Corrected Sodium 143 mmol/L (136-145) 10/04/16 05:35 Potassium 3.6 mmol/L (3.5-5.1) 10/04/16 05:35 Chloride 108 mmol/L (98-107) H 10/04/16 05:35 Carbon Dioxide 23.0 mmol/L (21-32) 10/04/16 05:35 BUN 30 mg/dL (7-18) H 10/04/16 05:35 Creatinine 1.48 mg/dL (0.55-1.02) H 10/04/16 05:35 Est GFR (MDRD) Af Amer 43 (>60) L 10/04/16 05:35 Est GFR (MDRD) Non-Af 36 (>60) L 10/04/16 05:35 Glucose 147 mg/dL (65-99) H 10/04/16 05:35 Hemoglobin A1c 10.1 % (4.5-6.2) H 10/02/16 05:25 Calcium 8.5 mg/dL (8.5-10.1) 10/04/16 05:35 Corrected Calcium 9.7 mg/dL (8.5-10.1) 10/04/16 05:35 Phosphorus 2.6 mg/dL (2.6-4.7) 10/02/16 05:25 Magnesium 2.0 mg/dL (1.7-2.9) 10/04/16 05:35 Total Bilirubin 0.60 mg/dL (0.2-1.0) 10/04/16 05:35 Direct Bilirubin 0.15 mg/dL (0-0.2) 10/03/16 06:50 Indirect Bilirubin 0.35 mg/dL (0.2-0.8) 10/03/16 06:50 AST 44 Units/L (15-37) H 10/04/16 05:35 ALT 18 Units/L (12-78) 10/04/16 05:35 Alkaline Phosphatase 69 Units/L (46-116) 10/04/16 05:35 Creatine Kinase 60 Units/L (26-192) 10/01/16 20:25 CK-MB (CK-2) 1.0 ng/mL (0-4.0) 10/01/16 20:25 CK/CKMB % Calc 1.7 % (<4) 10/01/16 20:25 Troponin I < 0.02 ng/mL (0-1.5) 10/01/16 20:25 Total Protein 6.6 g/dL (6.4-8.2) 10/04/16 05:35 Albumin 2.5 g/dL (3.4-5.0) L 10/04/16 05:35 Globulin 4.1 g/dL (2.5-4.5) 10/04/16 05:35 Albumin/Globulin Ratio 0.6 Ratio (1.1-2.1) L 10/04/16 05:35 Triglycerides 164 mg/dL (0-150) H 10/02/16 05:25 Cholesterol 215 mg/dL (0-200) H 10/02/16 05:25 LDL Cholesterol, Calc 147 mg/dL (0-100) H 10/02/16 05:25 HDL Cholesterol 35 mg/dL (40-60) L 10/02/16 05:25 Cholesterol/HDL Ratio 6.1 (0.0-5.0) H 10/02/16 05:25 Amylase 30 Units/L (25-115) 10/02/16 05:25 Lipase 108 Units/L (73-393) 10/02/16 05:25 Specimen Type Catherized urine 10/01/16 22:00 Urine Color Yellow (YELLOW) 10/01/16 22:00 Urine Appearance Clear (CLEAR) 10/01/16 22:00 Urine pH 5.0 (5.0 - 8.0) 10/01/16 22:00 Ur Specific [place] 1.015 (1.000-1.030) 10/01/16 22:00 Urine Protein 2+ (NEGATIVE) 10/01/16 22:00 Urine Glucose (UA) 4+ (NEGATIVE) 10/01/16 22:00 Urine Ketones 2+ (NEGATIVE) 10/01/16 22:00 Urine Occult Blood 1+ (NEGATIVE) 10/01/16 22:00 Urine Nitrite Negative (NEGATIVE) 10/01/16 22:00 Urine Bilirubin Negative (NEGATIVE) 10/01/16 22:00 Urine Urobilinogen Normal (NORMAL) 10/01/16 22:00 Ur Leukocyte Esterase Negative (NEGATIVE) 10/01/16 22:00 Urine RBC 0-3 /HPF (NEGATIVE) 10/01/16 22:00 Urine WBC 0-3 /HPF (NEGATIVE) 10/01/16 22:00 Ur Squamous Epith Cells Rare /HPF (NEGATIVE) 10/01/16 22:00 Urine Bacteria Negative /HPF (NEGATIVE) 10/01/16 22:00 Ur Culture Indicated? No/not indicated 10/01/16 22:00 Urine Opiates Screen Negative (NEG=<300) 10/01/16 22:00 Urine Methadone Screen Negative (NEG=<300) 10/01/16 22:00 Ur Barbiturates Screen Negative (NEG=<200) 10/01/16 22:00 Ur Phencyclidine Scrn Negative (NEG=<25) 10/01/16 22:00 Ur Amphetamines Screen Negative (NEG=<1000) 10/01/16 22:00 U Benzodiazepines Scrn Negative (NEG=<200) 10/01/16 22:00 Urine Cocaine Screen Negative (NEG=<300) 10/01/16 22:00 U Marijuana (THC) Screen Negative (NEG=<50) 10/01/16 22:00 - Plan (1) Acute thromboembolic cerebrovascular accident Status: Acute Plan: START PLAVIX, ELIQUIS, AND NORVASC WHEN PATIENT IS ABLE TO SWALLOW; CONTINUE LOVENOX, CONTINUE TO MONITOR. (2) Hyponatremia Status: Acute Plan: CONTINUE IV FLUIDS, MONTIOR LABS. (3) Leukocytosis Status: Acute Qualifiers: Leukocytosis type: unspecified Qualified Code(s): D72.829 - Elevated white blood cell count, unspecified Plan: CONTINUE ROCEPHIN, MONITOR. (4) Impaired swallowing Status: Acute Plan: HOLD NPO, START PROCALAMINE, MONITOR. (5) Right hemiplegia Status: Acute Plan: ABOVE. (6) Hypoalbuminemia Status: Acute Plan: START ALBUMIN IV DAILY, MONITOR. (7) HTN (hypertension) Status: Chronic Qualifiers: Hypertension type: essential hypertension Qualified Code(s): I10 - Essential (primary) hypertension Plan: START CLONIDINE PATCH, MONITOR. (8) Atrial fibrillation Status: Acute Qualifiers: Atrial fibrillation type: A Plan: CONTINUE TO MONITOR ON TELEMETRY. (9) Diabetes mellitus, type II Status: Chronic Qualifiers: Diabetes mellitus complication status: with hyperglycemia Diabetes mellitus complication detail: D Diabetic retinopathy severity: D Proliferative retinopathy type: P Diabetes mellitus macular edema: D Diabetes mellitus [facility] insulin use: without [facility] use Laterality: L Chronic kidney disease stage: C Qualified Code(s): E11.65 - Type 2 diabetes mellitus with hyperglycemia (10) COPD (chronic obstructive pulmonary disease) Status: Chronic Qualifiers: COPD type: unspecified COPD Chronic bronchitis type: C Emphysema type: E Qualified Code(s): J44.9 - Chronic obstructive pulmonary disease, unspecified
[2016-10-04] MEDS ORDERED: DEXTROSE 10% 1,000 ML IV PRN (17:16)
[2016-10-04] MEDS: SNACK - Diabetic Appropriate PO SCH (20:57)
[2016-10-04] MEDS: LANTUS SC SCH (21:07)
[2016-10-04] MEDS: HUMULIN R SUBCUT PRN (21:10)
[2016-10-05] MEDS: CLINIMIX 4.25 %/10 % 1,000 ML with MVI INJ (ADULT) 10 ML, TRACE ELEMENTS INJ 10 ML, TPN... IV SCH ×15 (01:16→20:53)
[2016-10-05] MEDS: HUMULIN R SUBCUT PRN ×5 (01:20→20:52)
[2016-10-05 06:18] LABS: BASOPHILS # (AUTO) 0.1 X10^3/uL (0.0-0.1); BASOPHILS % (AUTO) 0.6 % (0.2-1.0); EOSINOPHILS # (AUTO) 0.1 x10^3/uL (0.0-0.2); HEMATOCRIT 35.2 % (36.0-47.0); HEMOGLOBIN 11.8 g/dL (12.0-16.0); MEAN CORPUSCULAR HEMOGLOBIN 29.3 pg (27.0-34.0); MEAN CORPUSCULAR HGB CONC 33.5 g/dL (33.0-35.0); MEAN CORPUSCULAR VOLUME 87.6 fL (80.0-100.0); MEAN PLATELET VOLUME 9.1 fL (7.4-11.0); MONOCYTES # (AUTO) 0.7 x10^3/uL (0.3-0.8); MONOCYTES % (AUTO) 5.9 % (0.0-13.0); NEUTROPHILS # (AUTO) 10.1 x10^3/uL (2.2-4.8); NEUTROPHILS % (AUTO) 84.5 % (42.0-75.0); PLATELET COUNT 186 X10^3/uL (150.0-450.0); RED BLOOD COUNT 4.01 X10^6/uL (3.5-5.4); RED CELL DISTRIBUTION WIDTH 12.7 % (11.6-16.5)
[2016-10-05 06:40] LABS: ALBUMIN 3.1 g/dL (3.4-5.0); CALCIUM 8.9 mg/dL (8.5-10.1); CARBON DIOXIDE 24.1 mmol/L (21-32); COR CA(FOR HYPOALB) 9.6 mg/dL (8.5-10.1); CREATININE 1.44 mg/dL (0.55-1.02); TOTAL PROTEIN 6.8 g/dL (6.4-8.2)
[2016-10-05] MEDS: LOVENOX INJ 80 MG SYR SC SCH ×2 (09:25→20:53)
[2016-10-05] MEDS: ROCEPHIN VIAL 1 GM 1 GM in NS 50 ML IV + SPIKE MINIBAG* 50 ML IV SCH (09:25)
[2016-10-05] MEDS: NS 1000 ML 1,000 ML IV SCH ×3 (10:30→22:50)
[2016-10-05] MEDS: ALBUMIN HUMAN 25%- 100ML 100 ML IV SCH (10:36)
[2016-10-05] MEDS: LANTUS SC SCH (20:50)
[2016-10-05] MEDS: SNACK - Diabetic Appropriate PO SCH (20:54)
[2016-10-06] MEDS: HUMULIN R SUBCUT PRN ×3 (05:30→20:45)
[2016-10-06 05:38] LABS: BASOPHILS % (AUTO) 0.4 % (0.2-1.0); EOSINOPHILS # (AUTO) 0.3 x10^3/uL (0.0-0.2); EOSINOPHILS % (AUTO) 2.8 % (0.9-2.9); HEMOGLOBIN 11.7 g/dL (12.0-16.0); LYMPHOCYTES # (AUTO) 1.2 X10^3/uL (1.3-2.9); LYMPHOCYTES % (AUTO) 10.7 % (21.0-51.0); MEAN CORPUSCULAR HEMOGLOBIN 29.2 pg (27.0-34.0); MEAN CORPUSCULAR HGB CONC 33.4 g/dL (33.0-35.0); MEAN CORPUSCULAR VOLUME 87.4 fL (80.0-100.0); MONOCYTES # (AUTO) 0.8 x10^3/uL (0.3-0.8); NEUTROPHILS % (AUTO) 79.1 % (42.0-75.0); PLATELET COUNT 202 X10^3/uL (150.0-450.0); RED CELL DISTRIBUTION WIDTH 12.7 % (11.6-16.5); WHITE BLOOD COUNT 11.4 X10^3/uL (3.6-10.0)
[2016-10-06 05:49] LABS: ALBUMIN 3.1 g/dL (3.4-5.0); CALCIUM 8.7 mg/dL (8.5-10.1); CARBON DIOXIDE 24.7 mmol/L (21-32); COR CA(FOR HYPOALB) 9.4 mg/dL (8.5-10.1); CREATININE 1.31 mg/dL (0.55-1.02); TOTAL PROTEIN 6.6 g/dL (6.4-8.2)
[2016-10-06] MEDS: CLINIMIX 4.25 %/10 % 1,000 ML with MVI INJ (ADULT) 10 ML, TRACE ELEMENTS INJ 10 ML, TPN... IV SCH ×20 (06:42→20:33)
[2016-10-06] MEDS: ALBUMIN HUMAN 25%- 100ML 100 ML IV SCH (08:49)
[2016-10-06] MEDS: LOVENOX INJ 80 MG SYR SC SCH ×2 (08:52→20:44)
[2016-10-06] MEDS: ROCEPHIN VIAL 1 GM 1 GM in NS 50 ML IV + SPIKE MINIBAG* 50 ML IV SCH (09:53)
[2016-10-06] MEDS: NS 1000 ML 1,000 ML IV SCH ×2 (16:28→21:47)
--- NOTE | 2016-10-06 18:08 | PCM.PROG ---
Progress Note - Progress Note for Day of Date: 10/05/16 - Subjective Subjective: PATIENT IS RESTING IN BED AND CONTINUES WITH APHASIA. PATIENT CONTINUES WITH PROFOUND IMPAIRED ORAL-MOTOR FUNCTION. PATIENT CONTINUES TO BE NPO AND CONTINUES ON IV PROCALAMINE AND ALBUMIN FOR PARENTERAL NUTRITION. PATIENT CONTINUES WITH RIGHT HEMISPATIAL NEGLECT. DAUGHTER AT BEDSIDE. WE DISCUSS FURTHER TREATMENT, DAUGHTER VOICES UNDERSTANDING. BLOOD PRESSURE IS IMPROVED WITH CLONIDINE PATCH, 116/79. CBC WNL EXCEPT: WBC 12.0, H/H 11.8/ 35.2. CMP WNL EXCEPT: BUN/CREAT 32/1.44, GFR 37, GLUCOSE 293, ALBUMIN 3.1. WE WILL CONTINUE TO HOLD PO MEDICATIONS, CONTINUE LOVENOX, AND CONTINUE RANGE OF MOTION EXERCISES. WE WILL CONTINUE PROCALAMINE, ALBUMIN, AND CLONIDINE PATCH. WE WILL CONTINUE TO MONITOR AND FOLLOW UP IN AM WITH LABS. - Past Medical Family Social History Past Med/Fam/Surg Hx: No changes since H&P Allergies: Allergies No Known Drug Allergy Allergy (Verified 10/01/16 23:50) - Review of Systems ROS: No change since H&P - Vital Signs and I&O's Vital Signs: Temperature 97.7 F Pulse Rate [Right Brachial] 96 Respiratory Rate 23 Blood Pressure [Left Arm] 121/76 Blood Pressure [Left Calf] 144/88 Blood Pressure [Right Arm] 171/76 Blood Pressure 187/83 O2 Sat by Pulse Oximetry 100 Intake and Output: Intake & Output 10/04/16 10/05/16 10/06/16 10/07/16 11:59 11:59 11:59 11:59 Intake Total 3031 2832 3277 1120 Output Total 750 2200 2650 900 Balance 2281 632 627 220 - Physical Exam Oriented: Unable to test Eyes: Normal. negative: Discharge, Redness Ear: Normal. negative: Swelling, Ecchymosis, Hemotypanum, Abrasion, Laceration Nose: Normal. negative: Injected, Discharge, Blood Throat: Dry. negative: Tonsillar Hypertrophy, Red, Exudate Respiratory: Normal Cardiovascular: Irregular (Irreg, irreg). negative: Murmur, Edema : Normal. negative: Dysuria, Hematuria, Frequency, Discharge, Bleeding, Auscultation: Bowel Sounds: Decreased. negative: Bruit Palpation: Normal. negative: Spleen Enlarged, Liver Enlarged, Mass Pulsatile Tenderness: Normal. negative: Rebound, Guarding, Rigidity Skin: Decreased Turgur. negative: Diaphoresis, Wound, Bruising, Ecchymosis Musculoskeletal: Instability (Non-ambulatory) Mood Description: Flat Affect: Flat Speech Pattern: Aphasic - Laboratory and Diagnostics Result Diagrams: 10/06/16 05:05 10/06/16 05:05 Labs: Laboratory WBC 11.4 X10^3/uL (3.6-10.0) H 10/06/16 05:05 RBC 4.00 X10^6/uL (3.5-5.4) 10/06/16 05:05 Hgb 11.7 g/dL (12.0-16.0) L 10/06/16 05:05 Hct 35.0 % (36.0-47.0) L 10/06/16 05:05 MCV 87.4 fL (80.0-100.0) 10/06/16 05:05 MCH 29.2 pg (27.0-34.0) 10/06/16 05:05 MCHC 33.4 g/dL (33.0-35.0) 10/06/16 05:05 RDW 12.7 % (11.6-16.5) 10/06/16 05:05 Plt Count 202 X10^3/uL (150.0-450.0) 10/06/16 05:05 Plt Count Comment Adequate (ADEQUATE) 10/01/16 20:25 MPV 9.0 fL (7.4-11.0) 10/06/16 05:05 Neut % 79.1 % (42.0-75.0) H 10/06/16 05:05 Lymph % 10.7 % (21.0-51.0) L 10/06/16 05:05 [place] % 7.0 % (0.0-13.0) 10/06/16 05:05 Eos % 2.8 % (0.9-2.9) 10/06/16 05:05 Baso % 0.4 % (0.2-1.0) 10/06/16 05:05 Neut # 9.0 x10^3/uL (2.2-4.8) H 10/06/16 05:05 Lymph # 1.2 X10^3/uL (1.3-2.9) L 10/06/16 05:05 [place] # 0.8 x10^3/uL (0.3-0.8) 10/06/16 05:05 Eos # 0.3 x10^3/uL (0.0-0.2) H 10/06/16 05:05 Baso # 0.0 X10^3/uL (0.0-0.1) 10/06/16 05:05 Absolute Nucleated RBC 0.0 /100WBC 10/06/16 05:05 Total Counted 100 10/01/16 20:25 Neutrophils % (Manual) 97 % (39-76) H 10/01/16 20:25 Lymphocytes % (Manual) 3 % (13-43) L 10/01/16 20:25 Plt Morphology Comment Normal (NORMAL) 10/01/16 20:25 RBC Morphology Normal (NORMAL) 10/01/16 20:25 INR Target Range - 10/01/16 20:25 INR 1.09 (0.8-1.3) 10/01/16 20:25 PTT 25.3 SECONDS (22.9-36.5) 10/01/16 20:25 PTT Comment - 10/01/16 20:25 Fibrinogen 438 mg/dL (239-489) 10/02/16 05:25 Sodium 135 mmol/L (136-145) L 10/06/16 05:05 Corrected Sodium 140 mmol/L (136-145) 10/06/16 05:05 Potassium 4.0 mmol/L (3.5-5.1) 10/06/16 05:05 Chloride 101 mmol/L (98-107) 10/06/16 05:05 Carbon Dioxide 24.7 mmol/L (21-32) 10/06/16 05:05 BUN 34 mg/dL (7-18) H 10/06/16 05:05 Creatinine 1.31 mg/dL (0.55-1.02) H 10/06/16 05:05 Est GFR (MDRD) Af Amer 50 (>60) L 10/06/16 05:05 Est GFR (MDRD) Non-Af 41 (>60) L 10/06/16 05:05 Glucose 309 mg/dL (65-99) H 10/06/16 05:05 Hemoglobin A1c 10.1 % (4.5-6.2) H 10/02/16 05:25 Calcium 8.7 mg/dL (8.5-10.1) 10/06/16 05:05 Corrected Calcium 9.4 mg/dL (8.5-10.1) 10/06/16 05:05 Phosphorus 2.6 mg/dL (2.6-4.7) 10/02/16 05:25 Magnesium 2.0 mg/dL (1.7-2.9) 10/04/16 05:35 Total Bilirubin 1.00 mg/dL (0.2-1.0) 10/06/16 05:05 Direct Bilirubin 0.15 mg/dL (0-0.2) 10/03/16 06:50 Indirect Bilirubin 0.35 mg/dL (0.2-0.8) 10/03/16 06:50 AST 67 Units/L (15-37) H 10/06/16 05:05 ALT 60 Units/L (12-78) 10/06/16 05:05 Alkaline Phosphatase 71 Units/L (46-116) 10/06/16 05:05 Creatine Kinase 60 Units/L (26-192) 10/01/16 20:25 CK-MB (CK-2) 1.0 ng/mL (0-4.0) 10/01/16 20:25 CK/CKMB % Calc 1.7 % (<4) 10/01/16 20:25 Troponin I < 0.02 ng/mL (0-1.5) 10/01/16 20:25 Total Protein 6.6 g/dL (6.4-8.2) 10/06/16 05:05 Albumin 3.1 g/dL (3.4-5.0) L 10/06/16 05:05 Globulin 3.5 g/dL (2.5-4.5) 10/06/16 05:05 Albumin/Globulin Ratio 0.9 Ratio (1.1-2.1) L 10/06/16 05:05 Triglycerides 164 mg/dL (0-150) H 10/02/16 05:25 Cholesterol 215 mg/dL (0-200) H 10/02/16 05:25 LDL Cholesterol, Calc 147 mg/dL (0-100) H 10/02/16 05:25 HDL Cholesterol 35 mg/dL (40-60) L 10/02/16 05:25 Cholesterol/HDL Ratio 6.1 (0.0-5.0) H 10/02/16 05:25 Amylase 30 Units/L (25-115) 10/02/16 05:25 Lipase 108 Units/L (73-393) 10/02/16 05:25 Specimen Type Catherized urine 10/01/16 22:00 Urine Color Yellow (YELLOW) 10/01/16 22:00 Urine Appearance Clear (CLEAR) 10/01/16 22:00 Urine pH 5.0 (5.0 - 8.0) 10/01/16 22:00 Ur Specific [place] 1.015 (1.000-1.030) 10/01/16 22:00 Urine Protein 2+ (NEGATIVE) 10/01/16 22:00 Urine Glucose (UA) 4+ (NEGATIVE) 10/01/16 22:00 Urine Ketones 2+ (NEGATIVE) 10/01/16 22:00 Urine Occult Blood 1+ (NEGATIVE) 10/01/16 22:00 Urine Nitrite Negative (NEGATIVE) 10/01/16 22:00 Urine Bilirubin Negative (NEGATIVE) 10/01/16 22:00 Urine Urobilinogen Normal (NORMAL) 10/01/16 22:00 Ur Leukocyte Esterase Negative (NEGATIVE) 10/01/16 22:00 Urine RBC 0-3 /HPF (NEGATIVE) 10/01/16 22:00 Urine WBC 0-3 /HPF (NEGATIVE) 10/01/16 22:00 Ur Squamous Epith Cells Rare /HPF (NEGATIVE) 10/01/16 22:00 Urine Bacteria Negative /HPF (NEGATIVE) 10/01/16 22:00 Ur Culture Indicated? No/not indicated 10/01/16 22:00 Urine Opiates Screen Negative (NEG=<300) 10/01/16 22:00 Urine Methadone Screen Negative (NEG=<300) 10/01/16 22:00 Ur Barbiturates Screen Negative (NEG=<200) 10/01/16 22:00 Ur Phencyclidine Scrn Negative (NEG=<25) 10/01/16 22:00 Ur Amphetamines Screen Negative (NEG=<1000) 10/01/16 22:00 U Benzodiazepines Scrn Negative (NEG=<200) 10/01/16 22:00 Urine Cocaine Screen Negative (NEG=<300) 10/01/16 22:00 U Marijuana (THC) Screen Negative (NEG=<50) 10/01/16 22:00 - Plan (1) Acute thromboembolic cerebrovascular accident Status: Acute Plan: START PLAVIX, ELIQUIS, AND NORVASC WHEN PATIENT IS ABLE TO SWALLOW; CONTINUE LOVENOX, CONTINUE TO MONITOR. (2) Hyponatremia Status: Acute Plan: CONTINUE IV FLUIDS, MONTIOR LABS. (3) Leukocytosis Status: Acute Qualifiers: Leukocytosis type: unspecified Qualified Code(s): D72.829 - Elevated white blood cell count, unspecified Plan: CONTINUE ROCEPHIN, MONITOR. (4) Impaired swallowing Status: Acute Plan: HOLD NPO, CONTINUE PROCALAMINE, MONITOR. (5) Right hemiplegia Status: Acute Plan: ABOVE. (6) Hypoalbuminemia Status: Acute Plan: CONTINUE ALBUMIN IV DAILY, MONITOR. (7) HTN (hypertension) Status: Chronic Qualifiers: Hypertension type: essential hypertension Qualified Code(s): I10 - Essential (primary) hypertension Plan: CONTINUE CLONIDINE PATCH, MONITOR. (8) Atrial fibrillation Status: Acute Qualifiers: Atrial fibrillation type: A Plan: CONTINUE TO MONITOR ON TELEMETRY. (9) Diabetes mellitus, type II Status: Chronic Qualifiers: Diabetes mellitus complication status: with hyperglycemia Diabetes mellitus complication detail: D Diabetic retinopathy severity: D Proliferative retinopathy type: P Diabetes mellitus macular edema: D Diabetes mellitus [employer] insulin use: without java developer use Laterality: L Chronic kidney disease stage: C Qualified Code(s): E11.65 - Type 2 diabetes mellitus with hyperglycemia (10) COPD (chronic obstructive pulmonary disease) Status: Chronic Qualifiers: COPD type: unspecified COPD Chronic bronchitis type: C Emphysema type: E Qualified Code(s): J44.9 - Chronic obstructive pulmonary disease, unspecified
--- NOTE | 2016-10-06 19:01 | PCM.PROG ---
Progress Note - Progress Note for Day of Date: 10/06/16 - Subjective Subjective: PATIENT CONTINUES WITH APHASIA AND IMPAIRED ORAL-MOTOR FUNCTION. SHE CONTINUES ON IV PROCALAMINE AND ALBUMIN FOR PARENTERAL NUTRITION. WE SPEAK WITH DAUGHTER CONCERNING NUTRITION AND POSSIBLE PEG TUBE PLACEMENT. SHE VOICES UNDERSTANDING. PATIENT CONTINUES WITH RIGHT HEMISPATIAL NEGLECT. CBC WNL EXCEPT: WBC 11.4, H/H 11.7/35.0. CMP WNL EXCEPT: SODIUM 135, BUN/CREAT 34/1.31 , GFR 41, GLUCOSE 309, ALBUMIN 3.1. WE CONTINUE TO HOLD PO MEDICATIONS, CONTINUE LOVENOX, PROCALAMINE, ALBUMIN, AND CLONIDINE PATCH. WE WILL CONTINUE TO MONITOR AND FOLLOW UP IN AM WITH LABS. - Past Medical Family Social History Past Med/Fam/Surg Hx: No changes since H&P Allergies: Allergies No Known Drug Allergy Allergy (Verified 10/01/16 23:50) - Review of Systems ROS: No change since H&P - Vital Signs and I&O's Vital Signs: Temperature 97.9 F Pulse Rate [Right Brachial] 99 Respiratory Rate 25 Blood Pressure [Left Arm] 121/76 Blood Pressure [Left Calf] 144/88 Blood Pressure [Right Arm] 173/71 Blood Pressure 187/83 O2 Sat by Pulse Oximetry 100 Intake and Output: Intake & Output 10/04/16 10/05/16 10/06/16 10/07/16 11:59 11:59 11:59 11:59 Intake Total 3031 2832 3277 1120 Output Total 750 2200 2650 900 Balance 2281 632 627 220 - Physical Exam Oriented: Unable to test Eyes: Normal. negative: Discharge, Redness Ear: Normal. negative: Swelling, Ecchymosis, Hemotypanum, Abrasion, Laceration Nose: Normal. negative: Injected, Discharge, Blood Throat: Dry. negative: Tonsillar Hypertrophy, Red, Exudate Respiratory: Normal Cardiovascular: Irregular (Irreg, irreg). negative: Murmur, Edema : Normal. negative: Dysuria, Hematuria, Frequency, Discharge, Bleeding, Auscultation: Bowel Sounds: Decreased. negative: Bruit Palpation: Normal. negative: Spleen Enlarged, Liver Enlarged, Mass Pulsatile Tenderness: Normal. negative: Rebound, Guarding, Rigidity Skin: Decreased Turgur. negative: Diaphoresis, Wound, Bruising, Ecchymosis Musculoskeletal: Instability (Non-ambulatory) Mood Description: Flat Affect: Flat Speech Pattern: Aphasic - Laboratory and Diagnostics Result Diagrams: 10/06/16 05:05 10/06/16 05:05 Labs: Laboratory WBC 11.4 X10^3/uL (3.6-10.0) H 10/06/16 05:05 RBC 4.00 X10^6/uL (3.5-5.4) 10/06/16 05:05 Hgb 11.7 g/dL (12.0-16.0) L 10/06/16 05:05 Hct 35.0 % (36.0-47.0) L 10/06/16 05:05 MCV 87.4 fL (80.0-100.0) 10/06/16 05:05 MCH 29.2 pg (27.0-34.0) 10/06/16 05:05 MCHC 33.4 g/dL (33.0-35.0) 10/06/16 05:05 RDW 12.7 % (11.6-16.5) 10/06/16 05:05 Plt Count 202 X10^3/uL (150.0-450.0) 10/06/16 05:05 Plt Count Comment Adequate (ADEQUATE) 10/01/16 20:25 MPV 9.0 fL (7.4-11.0) 10/06/16 05:05 Neut % 79.1 % (42.0-75.0) H 10/06/16 05:05 Lymph % 10.7 % (21.0-51.0) L 10/06/16 05:05 [place] % 7.0 % (0.0-13.0) 10/06/16 05:05 Eos % 2.8 % (0.9-2.9) 10/06/16 05:05 Baso % 0.4 % (0.2-1.0) 10/06/16 05:05 Neut # 9.0 x10^3/uL (2.2-4.8) H 10/06/16 05:05 Lymph # 1.2 X10^3/uL (1.3-2.9) L 10/06/16 05:05 [place] # 0.8 x10^3/uL (0.3-0.8) 10/06/16 05:05 Eos # 0.3 x10^3/uL (0.0-0.2) H 10/06/16 05:05 Baso # 0.0 X10^3/uL (0.0-0.1) 10/06/16 05:05 Absolute Nucleated RBC 0.0 /100WBC 10/06/16 05:05 Total Counted 100 10/01/16 20:25 Neutrophils % (Manual) 97 % (39-76) H 10/01/16 20:25 Lymphocytes % (Manual) 3 % (13-43) L 10/01/16 20:25 Plt Morphology Comment Normal (NORMAL) 10/01/16 20:25 RBC Morphology Normal (NORMAL) 10/01/16 20:25 INR Target Range - 10/01/16 20:25 INR 1.09 (0.8-1.3) 10/01/16 20:25 PTT 25.3 SECONDS (22.9-36.5) 10/01/16 20:25 PTT Comment - 10/01/16 20:25 Fibrinogen 438 mg/dL (239-489) 10/02/16 05:25 Sodium 135 mmol/L (136-145) L 10/06/16 05:05 Corrected Sodium 140 mmol/L (136-145) 10/06/16 05:05 Potassium 4.0 mmol/L (3.5-5.1) 10/06/16 05:05 Chloride 101 mmol/L (98-107) 10/06/16 05:05 Carbon Dioxide 24.7 mmol/L (21-32) 10/06/16 05:05 BUN 34 mg/dL (7-18) H 10/06/16 05:05 Creatinine 1.31 mg/dL (0.55-1.02) H 10/06/16 05:05 Est GFR (MDRD) Af Amer 50 (>60) L 10/06/16 05:05 Est GFR (MDRD) Non-Af 41 (>60) L 10/06/16 05:05 Glucose 309 mg/dL (65-99) H 10/06/16 05:05 Hemoglobin A1c 10.1 % (4.5-6.2) H 10/02/16 05:25 Calcium 8.7 mg/dL (8.5-10.1) 10/06/16 05:05 Corrected Calcium 9.4 mg/dL (8.5-10.1) 10/06/16 05:05 Phosphorus 2.6 mg/dL (2.6-4.7) 10/02/16 05:25 Magnesium 2.0 mg/dL (1.7-2.9) 10/04/16 05:35 Total Bilirubin 1.00 mg/dL (0.2-1.0) 10/06/16 05:05 Direct Bilirubin 0.15 mg/dL (0-0.2) 10/03/16 06:50 Indirect Bilirubin 0.35 mg/dL (0.2-0.8) 10/03/16 06:50 AST 67 Units/L (15-37) H 10/06/16 05:05 ALT 60 Units/L (12-78) 10/06/16 05:05 Alkaline Phosphatase 71 Units/L (46-116) 10/06/16 05:05 Creatine Kinase 60 Units/L (26-192) 10/01/16 20:25 CK-MB (CK-2) 1.0 ng/mL (0-4.0) 10/01/16 20:25 CK/CKMB % Calc 1.7 % (<4) 10/01/16 20:25 Troponin I < 0.02 ng/mL (0-1.5) 10/01/16 20:25 Total Protein 6.6 g/dL (6.4-8.2) 10/06/16 05:05 Albumin 3.1 g/dL (3.4-5.0) L 10/06/16 05:05 Globulin 3.5 g/dL (2.5-4.5) 10/06/16 05:05 Albumin/Globulin Ratio 0.9 Ratio (1.1-2.1) L 10/06/16 05:05 Triglycerides 164 mg/dL (0-150) H 10/02/16 05:25 Cholesterol 215 mg/dL (0-200) H 10/02/16 05:25 LDL Cholesterol, Calc 147 mg/dL (0-100) H 10/02/16 05:25 HDL Cholesterol 35 mg/dL (40-60) L 10/02/16 05:25 Cholesterol/HDL Ratio 6.1 (0.0-5.0) H 10/02/16 05:25 Amylase 30 Units/L (25-115) 10/02/16 05:25 Lipase 108 Units/L (73-393) 10/02/16 05:25 Specimen Type Catherized urine 10/01/16 22:00 Urine Color Yellow (YELLOW) 10/01/16 22:00 Urine Appearance Clear (CLEAR) 10/01/16 22:00 Urine pH 5.0 (5.0 - 8.0) 10/01/16 22:00 Ur Specific [place] 1.015 (1.000-1.030) 10/01/16 22:00 Urine Protein 2+ (NEGATIVE) 10/01/16 22:00 Urine Glucose (UA) 4+ (NEGATIVE) 10/01/16 22:00 Urine Ketones 2+ (NEGATIVE) 10/01/16 22:00 Urine Occult Blood 1+ (NEGATIVE) 10/01/16 22:00 Urine Nitrite Negative (NEGATIVE) 10/01/16 22:00 Urine Bilirubin Negative (NEGATIVE) 10/01/16 22:00 Urine Urobilinogen Normal (NORMAL) 10/01/16 22:00 Ur Leukocyte Esterase Negative (NEGATIVE) 10/01/16 22:00 Urine RBC 0-3 /HPF (NEGATIVE) 10/01/16 22:00 Urine WBC 0-3 /HPF (NEGATIVE) 10/01/16 22:00 Ur Squamous Epith Cells Rare /HPF (NEGATIVE) 10/01/16 22:00 Urine Bacteria Negative /HPF (NEGATIVE) 10/01/16 22:00 Ur Culture Indicated? No/not indicated 10/01/16 22:00 Urine Opiates Screen Negative (NEG=<300) 10/01/16 22:00 Urine Methadone Screen Negative (NEG=<300) 10/01/16 22:00 Ur Barbiturates Screen Negative (NEG=<200) 10/01/16 22:00 Ur Phencyclidine Scrn Negative (NEG=<25) 10/01/16 22:00 Ur Amphetamines Screen Negative (NEG=<1000) 10/01/16 22:00 U Benzodiazepines Scrn Negative (NEG=<200) 10/01/16 22:00 Urine Cocaine Screen Negative (NEG=<300) 10/01/16 22:00 U Marijuana (THC) Screen Negative (NEG=<50) 10/01/16 22:00 - Plan (1) Acute thromboembolic cerebrovascular accident Status: Acute Plan: START PLAVIX, ELIQUIS, AND NORVASC WHEN PATIENT IS ABLE TO SWALLOW; CONTINUE LOVENOX, CONTINUE TO MONITOR. (2) Hyponatremia Status: Acute Plan: CONTINUE IV FLUIDS, MONTIOR LABS. (3) Leukocytosis Status: Acute Qualifiers: Leukocytosis type: unspecified Qualified Code(s): D72.829 - Elevated white blood cell count, unspecified Plan: CONTINUE ROCEPHIN, MONITOR. (4) Impaired swallowing Status: Acute Plan: HOLD NPO, CONTINUE PROCALAMINE, MONITOR. (5) Right hemiplegia Status: Acute Plan: ABOVE. (6) Hypoalbuminemia Status: Acute Plan: CONTINUE ALBUMIN IV DAILY, MONITOR. (7) HTN (hypertension) Status: Chronic Qualifiers: Hypertension type: essential hypertension Qualified Code(s): I10 - Essential (primary) hypertension Plan: CONTINUE CLONIDINE PATCH, MONITOR. (8) Atrial fibrillation Status: Acute Qualifiers: Atrial fibrillation type: A Plan: CONTINUE TO MONITOR ON TELEMETRY. (9) Diabetes mellitus, type II Status: Chronic Qualifiers: Diabetes mellitus complication status: with hyperglycemia Diabetes mellitus complication detail: D Diabetic retinopathy severity: D Proliferative retinopathy type: P Diabetes mellitus macular edema: D Diabetes mellitus detention insulin use: without laborer marine terminal use Laterality: L Chronic kidney disease stage: C Qualified Code(s): E11.65 - Type 2 diabetes mellitus with hyperglycemia (10) COPD (chronic obstructive pulmonary disease) Status: Chronic Qualifiers: COPD type: unspecified COPD Chronic bronchitis type: C Emphysema type: E Qualified Code(s): J44.9 - Chronic obstructive pulmonary disease, unspecified
[2016-10-06] MEDS: SNACK - Diabetic Appropriate PO SCH (19:56)
[2016-10-06] MEDS: LANTUS SC SCH (20:44)
[2016-10-07] MEDS: CLINIMIX 4.25 %/10 % 1,000 ML with MVI INJ (ADULT) 10 ML, TRACE ELEMENTS INJ 10 ML, TPN... IV SCH ×17 (02:59→21:43)
[2016-10-07] MEDS: NS 1000 ML 1,000 ML IV SCH ×2 (03:00→18:03)
[2016-10-07] MEDS: HUMULIN R SUBCUT PRN ×3 (05:44→21:42)
[2016-10-07 06:18] LABS: BASOPHILS # (AUTO) 0.1 X10^3/uL (0.0-0.1); BASOPHILS % (AUTO) 0.8 % (0.2-1.0); EOSINOPHILS # (AUTO) 0.5 x10^3/uL (0.0-0.2); EOSINOPHILS % (AUTO) 3.8 % (0.9-2.9); HEMATOCRIT 35.7 % (36.0-47.0); LYMPHOCYTES # (AUTO) 1.3 X10^3/uL (1.3-2.9); LYMPHOCYTES % (AUTO) 9.6 % (21.0-51.0); MEAN CORPUSCULAR HEMOGLOBIN 29.5 pg (27.0-34.0); MEAN CORPUSCULAR HGB CONC 33.6 g/dL (33.0-35.0); MEAN CORPUSCULAR VOLUME 87.9 fL (80.0-100.0); MEAN PLATELET VOLUME 9.6 fL (7.4-11.0); MONOCYTES % (AUTO) 7.7 % (0.0-13.0); NEUTROPHILS # (AUTO) 10.2 x10^3/uL (2.2-4.8); NEUTROPHILS % (AUTO) 78.1 % (42.0-75.0); PLATELET COUNT 198 X10^3/uL (150.0-450.0); RED BLOOD COUNT 4.06 X10^6/uL (3.5-5.4); RED CELL DISTRIBUTION WIDTH 12.7 % (11.6-16.5); WHITE BLOOD COUNT 13.1 X10^3/uL (3.6-10.0)
[2016-10-07 06:43] LABS: ALANINE AMINOTRANSFERASE 74 Units/L (12-78); ALBUMIN 3.4 g/dL (3.4-5.0); ALKALINE PHOSPHATASE 84 Units/L (46-116); ASPARTATE AMINO TRANSFERASE 62 Units/L (15-37); BLOOD UREA NITROGEN 38 mg/dL (7-18); CALCIUM 9.2 mg/dL (8.5-10.1); CARBON DIOXIDE 22.1 mmol/L (21-32); CHLORIDE 101 mmol/L (98-107); COR NA(FOR HYPERGLY) 140 mmol/L (136-145); CREATININE 1.26 mg/dL (0.55-1.02); GLUCOSE 251 mg/dL (65-99); SODIUM 136 mmol/L (136-145); TOTAL PROTEIN 6.9 g/dL (6.4-8.2); eGFR BLACK RACES 52 (>60); eGFR NON BLACK RACES 43 (>60)
[2016-10-07] MEDS: LOVENOX INJ 80 MG SYR SC SCH ×2 (09:00→21:41)
[2016-10-07] MEDS: ALBUMIN HUMAN 25%- 100ML 100 ML IV SCH (09:00)
[2016-10-07] MEDS: ROCEPHIN VIAL 1 GM 1 GM in NS 50 ML IV + SPIKE MINIBAG* 50 ML IV SCH (11:59)
[2016-10-07] MEDS: SNACK - Diabetic Appropriate PO SCH (20:29)
[2016-10-07] MEDS: LANTUS SC SCH (21:43)
--- NOTE | 2016-10-08 01:24 | RAD ---
EXAM: Abdomen x-ray INDICATION: Tube placement COMPARISION: No priors TECHNIQUE: AP view, single view FINDINGS: Feeding tube located in the stomach below the left hemidiaphragm. The bowel loops are nonobstructed. No abnormal mass or calcification is identified. The regional skeleton is intact. IMPRESSION: Normal single view abdominal x-ray examination Reported By:
[2016-10-08] MEDS: CLINIMIX 4.25 %/10 % 1,000 ML with MVI INJ (ADULT) 10 ML, TRACE ELEMENTS INJ 10 ML, TPN... IV SCH ×24 (04:58→19:58)
[2016-10-08] MEDS: HUMULIN R SUBCUT PRN ×3 (05:02→21:20)
[2016-10-08] MEDS ORDERED: LANTISEPTIC ONE (05:21)
[2016-10-08 06:16] LABS: BASOPHILS # (AUTO) 0.1 X10^3/uL (0.0-0.1); BASOPHILS % (AUTO) 0.5 % (0.2-1.0); EOSINOPHILS # (AUTO) 0.5 x10^3/uL (0.0-0.2); EOSINOPHILS % (AUTO) 3.1 % (0.9-2.9); LYMPHOCYTES # (AUTO) 1.3 X10^3/uL (1.3-2.9); LYMPHOCYTES % (AUTO) 8.5 % (21.0-51.0); MEAN CORPUSCULAR HEMOGLOBIN 29.3 pg (27.0-34.0); MEAN CORPUSCULAR HGB CONC 33.4 g/dL (33.0-35.0); MEAN CORPUSCULAR VOLUME 87.7 fL (80.0-100.0); MEAN PLATELET VOLUME 9.5 fL (7.4-11.0); MONOCYTES # (AUTO) 1.2 x10^3/uL (0.3-0.8); NEUTROPHILS # (AUTO) 12.4 x10^3/uL (2.2-4.8); NEUTROPHILS % (AUTO) 79.9 % (42.0-75.0); PLATELET COUNT 219 X10^3/uL (150.0-450.0); RED BLOOD COUNT 4.11 X10^6/uL (3.5-5.4); RED CELL DISTRIBUTION WIDTH 12.7 % (11.6-16.5); WHITE BLOOD COUNT 15.5 X10^3/uL (3.6-10.0)
[2016-10-08 07:14] LABS: ALANINE AMINOTRANSFERASE 60 Units/L (12-78); ALBUMIN 3.5 g/dL (3.4-5.0); ALKALINE PHOSPHATASE 95 Units/L (46-116); ASPARTATE AMINO TRANSFERASE 46 Units/L (15-37); BLOOD UREA NITROGEN 45 mg/dL (7-18); CALCIUM 9.4 mg/dL (8.5-10.1); CARBON DIOXIDE 25.6 mmol/L (21-32); CHLORIDE 100 mmol/L (98-107); COR NA(FOR HYPERGLY) 138 mmol/L (136-145); CREATININE 1.34 mg/dL (0.55-1.02); GLUCOSE 316 mg/dL (65-99); SODIUM 133 mmol/L (136-145); TOTAL PROTEIN 6.9 g/dL (6.4-8.2); eGFR BLACK RACES 48 (>60); eGFR NON BLACK RACES 40 (>60)
[2016-10-08] MEDS: LOVENOX INJ 80 MG SYR SC SCH ×2 (08:21→21:21)
[2016-10-08] MEDS: ROCEPHIN VIAL 1 GM 1 GM in NS 50 ML IV + SPIKE MINIBAG* 50 ML IV SCH (08:21)
[2016-10-08] MEDS: ALBUMIN HUMAN 25%- 100ML 100 ML IV SCH (08:22)
--- NOTE | 2016-10-08 12:22 | PCM.PROG ---
Progress Note - Progress Note for Day of Date: 10/07/16 - Subjective Subjective: PATIENT IS ALERT WITH DAUGHTER AT BEDSIDE. SHE ALSO CONTINUES WITH EXTREME WEAKNESS TO RIGHT SIDE. SHE CONTINUES ON IV PROCALAMINE AND ALBUMIN FOR PARENTERAL NUTRITION DUE TO PROLONGED NPO STATUS DUE TO INABILITY TO FOLLOW CUES FOR SWALLOWING. WE SPEAK WITH DAUGHTER CONCERNING PEG TUBE PLACEMENT FOR NUTRITIONAL SUPPORT AND SHE IS IN AGREEMENT. WE WILL CONSULT DR. HINOJOSA. RIGHT HEMISPATIAL NEGLECT IS IMPROVING. WHEN SPEAKING TO PATIENT SHE IS ALERT AND FOLLOWS WITH HER EYES. SHE IS ABLE TO SHAKE HER HEAD "YES" OR "NO" TO QUESTIONS BUT CONTINUES WITH APHASIA. CBC WNL EXCEPT: WBC 13.1. CMP WNL EXCEPT : BUN/CREAT 38/1.26, GFR 43, GLUCOSE 251. WHILE WE AWAIT PEG TUBE PLACEMENT, WE WILL BEGIN NG TUBE AND START TUBE FEEDINGS OF GLUCERNA AT 20MLS/HR WITH RESIDUAL CHECKS EVERY 4 HOURS. WE HOLD PLAVIX AND ELIQUIS UNTIL SURGERY, CONTINUE LOVENOX, PROCALAMINE, ALBUMIN, AND CLONIDINE PATCH. WE WILL CONTINUE TO MONITOR AND FOLLOW UP IN AM WITH LABS. - Past Medical Family Social History Past Med/Fam/Surg Hx: No changes since H&P Allergies: Allergies No Known Drug Allergy Allergy (Verified 10/01/16 23:50) - Review of Systems ROS: No change since H&P - Vital Signs and I&O's Vital Signs: Temperature 97.7 F Pulse Rate [Right Brachial] 56 Respiratory Rate 17 Blood Pressure [Left Arm] 121/76 Blood Pressure [Left Calf] 144/88 Blood Pressure [Right Arm] 135/54 Blood Pressure 187/83 O2 Sat by Pulse Oximetry 97 Intake and Output: Intake & Output 10/06/16 10/07/16 10/08/16 10/09/16 11:59 11:59 11:59 11:59 Intake Total 3277 2160 3270 Output Total 2650 1600 2600 Balance 627 560 670 - Physical Exam Oriented: Unable to test Eyes: Normal. negative: Discharge, Redness Ear: Normal. negative: Swelling, Ecchymosis, Hemotypanum, Abrasion, Laceration Nose: Normal. negative: Injected, Discharge, Blood Throat: Dry. negative: Tonsillar Hypertrophy, Red, Exudate Respiratory: Normal Cardiovascular: Irregular (Irreg, irreg). negative: Murmur, Edema : Normal. negative: Dysuria, Hematuria, Frequency, Discharge, Bleeding, Auscultation: Bowel Sounds: Decreased. negative: Bruit Palpation: Normal. negative: Spleen Enlarged, Liver Enlarged, Mass Pulsatile Tenderness: Normal. negative: Rebound, Guarding, Rigidity Skin: Decreased Turgur. negative: Diaphoresis, Wound, Bruising, Ecchymosis Musculoskeletal: Instability (Non-ambulatory) Mood Description: Flat Affect: Flat Speech Pattern: Unclear, Aphasic - Laboratory and Diagnostics Result Diagrams: 10/08/16 05:35 10/08/16 05:35 Labs: Laboratory WBC 15.5 X10^3/uL (3.6-10.0) H 10/08/16 05:35 RBC 4.11 X10^6/uL (3.5-5.4) 10/08/16 05:35 Hgb 12.0 g/dL (12.0-16.0) 10/08/16 05:35 Hct 36.0 % (36.0-47.0) 10/08/16 05:35 MCV 87.7 fL (80.0-100.0) 10/08/16 05:35 MCH 29.3 pg (27.0-34.0) 10/08/16 05:35 MCHC 33.4 g/dL (33.0-35.0) 10/08/16 05:35 RDW 12.7 % (11.6-16.5) 10/08/16 05:35 Plt Count 219 X10^3/uL (150.0-450.0) 10/08/16 05:35 Plt Count Comment Adequate (ADEQUATE) 10/01/16 20:25 MPV 9.5 fL (7.4-11.0) 10/08/16 05:35 Neut % 79.9 % (42.0-75.0) H 10/08/16 05:35 Lymph % 8.5 % (21.0-51.0) L 10/08/16 05:35 [place] % 8.0 % (0.0-13.0) 10/08/16 05:35 Eos % 3.1 % (0.9-2.9) H 10/08/16 05:35 Baso % 0.5 % (0.2-1.0) 10/08/16 05:35 Neut # 12.4 x10^3/uL (2.2-4.8) H 10/08/16 05:35 Lymph # 1.3 X10^3/uL (1.3-2.9) 10/08/16 05:35 [place] # 1.2 x10^3/uL (0.3-0.8) H 10/08/16 05:35 Eos # 0.5 x10^3/uL (0.0-0.2) H 10/08/16 05:35 Baso # 0.1 X10^3/uL (0.0-0.1) 10/08/16 05:35 Absolute Nucleated RBC 0.0 /100WBC 10/08/16 05:35 Total Counted 100 10/01/16 20:25 Neutrophils % (Manual) 97 % (39-76) H 10/01/16 20:25 Lymphocytes % (Manual) 3 % (13-43) L 10/01/16 20:25 Plt Morphology Comment Normal (NORMAL) 10/01/16 20:25 RBC Morphology Normal (NORMAL) 10/01/16 20:25 INR Target Range - 10/01/16 20:25 INR 1.09 (0.8-1.3) 10/01/16 20:25 PTT 25.3 SECONDS (22.9-36.5) 10/01/16 20:25 PTT Comment - 10/01/16 20:25 Fibrinogen 438 mg/dL (239-489) 10/02/16 05:25 Sodium 133 mmol/L (136-145) L 10/08/16 05:35 Corrected Sodium 138 mmol/L (136-145) 10/08/16 05:35 Potassium 4.6 mmol/L (3.5-5.1) 10/08/16 05:35 Chloride 100 mmol/L (98-107) 10/08/16 05:35 Carbon Dioxide 25.6 mmol/L (21-32) 10/08/16 05:35 BUN 45 mg/dL (7-18) H 10/08/16 05:35 Creatinine 1.34 mg/dL (0.55-1.02) H 10/08/16 05:35 Est GFR (MDRD) Af Amer 48 (>60) L 10/08/16 05:35 Est GFR (MDRD) Non-Af 40 (>60) L 10/08/16 05:35 Glucose 316 mg/dL (65-99) H 10/08/16 05:35 Hemoglobin A1c 10.1 % (4.5-6.2) H 10/02/16 05:25 Calcium 9.4 mg/dL (8.5-10.1) 10/08/16 05:35 Corrected Calcium TNP 10/08/16 05:35 Phosphorus 2.6 mg/dL (2.6-4.7) 10/02/16 05:25 Magnesium 2.0 mg/dL (1.7-2.9) 10/04/16 05:35 Total Bilirubin 0.80 mg/dL (0.2-1.0) 10/08/16 05:35 Direct Bilirubin 0.15 mg/dL (0-0.2) 10/03/16 06:50 Indirect Bilirubin 0.35 mg/dL (0.2-0.8) 10/03/16 06:50 AST 46 Units/L (15-37) H 10/08/16 05:35 ALT 60 Units/L (12-78) 10/08/16 05:35 Alkaline Phosphatase 95 Units/L (46-116) 10/08/16 05:35 Creatine Kinase 60 Units/L (26-192) 10/01/16 20:25 CK-MB (CK-2) 1.0 ng/mL (0-4.0) 10/01/16 20:25 CK/CKMB % Calc 1.7 % (<4) 10/01/16 20:25 Troponin I < 0.02 ng/mL (0-1.5) 10/01/16 20:25 Total Protein 6.9 g/dL (6.4-8.2) 10/08/16 05:35 Albumin 3.5 g/dL (3.4-5.0) 10/08/16 05:35 Globulin 3.4 g/dL (2.5-4.5) 10/08/16 05:35 Albumin/Globulin Ratio 1.0 Ratio (1.1-2.1) L 10/08/16 05:35 Triglycerides 164 mg/dL (0-150) H 10/02/16 05:25 Cholesterol 215 mg/dL (0-200) H 10/02/16 05:25 LDL Cholesterol, Calc 147 mg/dL (0-100) H 10/02/16 05:25 HDL Cholesterol 35 mg/dL (40-60) L 10/02/16 05:25 Cholesterol/HDL Ratio 6.1 (0.0-5.0) H 10/02/16 05:25 Amylase 30 Units/L (25-115) 10/02/16 05:25 Lipase 108 Units/L (73-393) 10/02/16 05:25 Specimen Type Catherized urine 10/01/16 22:00 Urine Color Yellow (YELLOW) 10/01/16 22:00 Urine Appearance Clear (CLEAR) 10/01/16 22:00 Urine pH 5.0 (5.0 - 8.0) 10/01/16 22:00 Ur Specific [place] 1.015 (1.000-1.030) 10/01/16 22:00 Urine Protein 2+ (NEGATIVE) 10/01/16 22:00 Urine Glucose (UA) 4+ (NEGATIVE) 10/01/16 22:00 Urine Ketones 2+ (NEGATIVE) 10/01/16 22:00 Urine Occult Blood 1+ (NEGATIVE) 10/01/16 22:00 Urine Nitrite Negative (NEGATIVE) 10/01/16 22:00 Urine Bilirubin Negative (NEGATIVE) 10/01/16 22:00 Urine Urobilinogen Normal (NORMAL) 10/01/16 22:00 Ur Leukocyte Esterase Negative (NEGATIVE) 10/01/16 22:00 Urine RBC 0-3 /HPF (NEGATIVE) 10/01/16 22:00 Urine WBC 0-3 /HPF (NEGATIVE) 10/01/16 22:00 Ur Squamous Epith Cells Rare /HPF (NEGATIVE) 10/01/16 22:00 Urine Bacteria Negative /HPF (NEGATIVE) 10/01/16 22:00 Ur Culture Indicated? No/not indicated 10/01/16 22:00 Urine Opiates Screen Negative (NEG=<300) 10/01/16 22:00 Urine Methadone Screen Negative (NEG=<300) 10/01/16 22:00 Ur Barbiturates Screen Negative (NEG=<200) 10/01/16 22:00 Ur Phencyclidine Scrn Negative (NEG=<25) 10/01/16 22:00 Ur Amphetamines Screen Negative (NEG=<1000) 10/01/16 22:00 U Benzodiazepines Scrn Negative (NEG=<200) 10/01/16 22:00 Urine Cocaine Screen Negative (NEG=<300) 10/01/16 22:00 U Marijuana (THC) Screen Negative (NEG=<50) 10/01/16 22:00 - Plan (1) Acute thromboembolic cerebrovascular accident Status: Acute Plan: HOLD PLAVIX, ELIQUIS FOR PEG TUBE PLACEMENT; CONTINUE LOVENOX, CONTINUE TO MONITOR. (2) Hyponatremia Status: Acute Plan: CONTINUE IV FLUIDS, MONTIOR LABS. (3) Leukocytosis Status: Acute Qualifiers: Leukocytosis type: unspecified Qualified Code(s): D72.829 - Elevated white blood cell count, unspecified Plan: CONTINUE ROCEPHIN, MONITOR. (4) Impaired swallowing Status: Acute Plan: HOLD NPO, PLACE NG TUBE AND START TUBE FEEDINGS, CONTINUE PERIPHERAL TPN, MONITOR. (5) Right hemiplegia Status: Acute Plan: ABOVE. (6) Hypoalbuminemia Status: Acute Plan: CONTINUE ALBUMIN IV DAILY, MONITOR. (7) HTN (hypertension) Status: Chronic Qualifiers: Hypertension type: essential hypertension Qualified Code(s): I10 - Essential (primary) hypertension Plan: CONTINUE CLONIDINE PATCH, MONITOR. (8) Atrial fibrillation Status: Acute Qualifiers: Atrial fibrillation type: A Plan: CONTINUE TO MONITOR ON TELEMETRY. (9) Diabetes mellitus, type II Status: Chronic Qualifiers: Diabetes mellitus complication status: with hyperglycemia Diabetes mellitus complication detail: D Diabetic retinopathy severity: D Proliferative retinopathy type: P Diabetes mellitus macular edema: D Diabetes mellitus senior care insulin use: without senior care use Laterality: L Chronic kidney disease stage: C Qualified Code(s): E11.65 - Type 2 diabetes mellitus with hyperglycemia (10) COPD (chronic obstructive pulmonary disease) Status: Chronic Qualifiers: COPD type: unspecified COPD Chronic bronchitis type: C Emphysema type: E Qualified Code(s): J44.9 - Chronic obstructive pulmonary disease, unspecified
--- NOTE | 2016-10-08 12:30 | PCM.PROG ---
Progress Note - Progress Note for Day of Date: 10/08/16 - Subjective Subjective: PATIENT IS ALERT. DAUGHTER AT BEDSIDE ASLEEP. SHE CONTINUES WITH EXTREME WEAKNESS TO RIGHT SIDE. SHE CONTINUES ON IV PROCALAMINE AND ALBUMIN FOR PARENTERAL NUTRITION DUE TO PROLONGED NPO STATUS DUE TO INABILITY TO FOLLOW CUES FOR SWALLOWING. NG TUBE WAS PLACED YESTERDAY AND IS INFUSING GLUCERNA AT 20MLS/HR. RIGHT HEMISPATIAL NEGLECT CONTINUES TO IMPROVE. WE SPEAK WITH PATIENT ABOUT NG TUBE AND NUTRITION WITH PLANS FOR A PEG TUBE. PATIENT NODS HER HEAD IN AGREEMENT. CBC WNL EXCEPT: WBC 15.5. CMP WNL EXCEPT: BUN/CREAT 45/ 1.34, GFR 40, GLUCOSE 316. WE WILL CONTINUE TUBE FEEDINGS OF GLUCERNA AT 20MLS/ HR WITH RESIDUAL CHECKS EVERY 4 HOURS. WE HOLD PLAVIX AND ELIQUIS UNTIL PEG TUBE PLACEMENT, CONTINUE LOVENOX, PROCALAMINE, ALBUMIN, AND CLONIDINE PATCH. WE WILL CONTINUE TO MONITOR AND FOLLOW UP IN AM WITH LABS. - Past Medical Family Social History Past Med/Fam/Surg Hx: No changes since H&P Allergies: Allergies No Known Drug Allergy Allergy (Verified 10/01/16 23:50) - Review of Systems ROS: No change since H&P - Vital Signs and I&O's Vital Signs: Temperature 97.7 F Pulse Rate [Right Brachial] 56 Respiratory Rate 17 Blood Pressure [Left Arm] 121/76 Blood Pressure [Left Calf] 144/88 Blood Pressure [Right Arm] 135/54 Blood Pressure 187/83 O2 Sat by Pulse Oximetry 97 Intake and Output: Intake & Output 10/06/16 10/07/16 10/08/16 10/09/16 11:59 11:59 11:59 11:59 Intake Total 3277 2160 3270 Output Total 2650 1600 2600 Balance 627 529 670 - Physical Exam Oriented: Unable to test Eyes: Normal. negative: Discharge, Redness Ear: Normal. negative: Swelling, Ecchymosis, Hemotypanum, Abrasion, Laceration Nose: Normal. negative: Injected, Discharge, Blood Throat: Dry. negative: Tonsillar Hypertrophy, Red, Exudate Respiratory: Normal Cardiovascular: Irregular (Irreg, irreg). negative: Murmur, Edema : Normal. negative: Dysuria, Hematuria, Frequency, Discharge, Bleeding, Auscultation: Bowel Sounds: Decreased. negative: Bruit Palpation: Normal. negative: Spleen Enlarged, Liver Enlarged, Mass Pulsatile Tenderness: Normal. negative: Rebound, Guarding, Rigidity Skin: Decreased Turgur. negative: Diaphoresis, Wound, Bruising, Ecchymosis Musculoskeletal: Instability (Non-ambulatory) Mood Description: Flat Affect: Flat Speech Pattern: Unclear, Aphasic - Laboratory and Diagnostics Result Diagrams: 10/08/16 05:35 10/08/16 05:35 Labs: Laboratory WBC 15.5 X10^3/uL (3.6-10.0) H 10/08/16 05:35 RBC 4.11 X10^6/uL (3.5-5.4) 10/08/16 05:35 Hgb 12.0 g/dL (12.0-16.0) 10/08/16 05:35 Hct 36.0 % (36.0-47.0) 10/08/16 05:35 MCV 87.7 fL (80.0-100.0) 10/08/16 05:35 MCH 29.3 pg (27.0-34.0) 10/08/16 05:35 MCHC 33.4 g/dL (33.0-35.0) 10/08/16 05:35 RDW 12.7 % (11.6-16.5) 10/08/16 05:35 Plt Count 219 X10^3/uL (150.0-450.0) 10/08/16 05:35 Plt Count Comment Adequate (ADEQUATE) 10/01/16 20:25 MPV 9.5 fL (7.4-11.0) 10/08/16 05:35 Neut % 79.9 % (42.0-75.0) H 10/08/16 05:35 Lymph % 8.5 % (21.0-51.0) L 10/08/16 05:35 Burt % 8.0 % (0.0-13.0) 10/08/16 05:35 Eos % 3.1 % (0.9-2.9) H 10/08/16 05:35 Baso % 0.5 % (0.2-1.0) 10/08/16 05:35 Neut # 12.4 x10^3/uL (2.2-4.8) H 10/08/16 05:35 Lymph # 1.3 X10^3/uL (1.3-2.9) 10/08/16 05:35 Burt # 1.2 x10^3/uL (0.3-0.8) H 10/08/16 05:35 Eos # 0.5 x10^3/uL (0.0-0.2) H 10/08/16 05:35 Baso # 0.1 X10^3/uL (0.0-0.1) 10/08/16 05:35 Absolute Nucleated RBC 0.0 /100WBC 10/08/16 05:35 Total Counted 100 10/01/16 20:25 Neutrophils % (Manual) 97 % (39-76) H 10/01/16 20:25 Lymphocytes % (Manual) 3 % (13-43) L 10/01/16 20:25 Plt Morphology Comment Normal (NORMAL) 10/01/16 20:25 RBC Morphology Normal (NORMAL) 10/01/16 20:25 INR Target Range - 10/01/16 20:25 INR 1.09 (0.8-1.3) 10/01/16 20:25 PTT 25.3 SECONDS (22.9-36.5) 10/01/16 20:25 PTT Comment - 10/01/16 20:25 Fibrinogen 438 mg/dL (239-489) 10/02/16 05:25 Sodium 133 mmol/L (136-145) L 10/08/16 05:35 Corrected Sodium 138 mmol/L (136-145) 10/08/16 05:35 Potassium 4.6 mmol/L (3.5-5.1) 10/08/16 05:35 Chloride 100 mmol/L (98-107) 10/08/16 05:35 Carbon Dioxide 25.6 mmol/L (21-32) 10/08/16 05:35 BUN 45 mg/dL (7-18) H 10/08/16 05:35 Creatinine 1.34 mg/dL (0.55-1.02) H 10/08/16 05:35 Est GFR (MDRD) Af Amer 48 (>60) L 10/08/16 05:35 Est GFR (MDRD) Non-Af 40 (>60) L 10/08/16 05:35 Glucose 316 mg/dL (65-99) H 10/08/16 05:35 Hemoglobin A1c 10.1 % (4.5-6.2) H 10/02/16 05:25 Calcium 9.4 mg/dL (8.5-10.1) 10/08/16 05:35 Corrected Calcium TNP 10/08/16 05:35 Phosphorus 2.6 mg/dL (2.6-4.7) 10/02/16 05:25 Magnesium 2.0 mg/dL (1.7-2.9) 10/04/16 05:35 Total Bilirubin 0.80 mg/dL (0.2-1.0) 10/08/16 05:35 Direct Bilirubin 0.15 mg/dL (0-0.2) 10/03/16 06:50 Indirect Bilirubin 0.35 mg/dL (0.2-0.8) 10/03/16 06:50 AST 46 Units/L (15-37) H 10/08/16 05:35 ALT 60 Units/L (12-78) 10/08/16 05:35 Alkaline Phosphatase 95 Units/L (46-116) 10/08/16 05:35 Creatine Kinase 60 Units/L (26-192) 10/01/16 20:25 CK-MB (CK-2) 1.0 ng/mL (0-4.0) 10/01/16 20:25 CK/CKMB % Calc 1.7 % (<4) 10/01/16 20:25 Troponin I < 0.02 ng/mL (0-1.5) 10/01/16 20:25 Total Protein 6.9 g/dL (6.4-8.2) 10/08/16 05:35 Albumin 3.5 g/dL (3.4-5.0) 10/08/16 05:35 Globulin 3.4 g/dL (2.5-4.5) 10/08/16 05:35 Albumin/Globulin Ratio 1.0 Ratio (1.1-2.1) L 10/08/16 05:35 Triglycerides 164 mg/dL (0-150) H 10/02/16 05:25 Cholesterol 215 mg/dL (0-200) H 10/02/16 05:25 LDL Cholesterol, Calc 147 mg/dL (0-100) H 10/02/16 05:25 HDL Cholesterol 35 mg/dL (40-60) L 10/02/16 05:25 Cholesterol/HDL Ratio 6.1 (0.0-5.0) H 10/02/16 05:25 Amylase 30 Units/L (25-115) 10/02/16 05:25 Lipase 108 Units/L (73-393) 10/02/16 05:25 Specimen Type Catherized urine 10/01/16 22:00 Urine Color Yellow (YELLOW) 10/01/16 22:00 Urine Appearance Clear (CLEAR) 10/01/16 22:00 Urine pH 5.0 (5.0 - 8.0) 10/01/16 22:00 Ur Specific [place] 1.015 (1.000-1.030) 10/01/16 22:00 Urine Protein 2+ (NEGATIVE) 10/01/16 22:00 Urine Glucose (UA) 4+ (NEGATIVE) 10/01/16 22:00 Urine Ketones 2+ (NEGATIVE) 10/01/16 22:00 Urine Occult Blood 1+ (NEGATIVE) 10/01/16 22:00 Urine Nitrite Negative (NEGATIVE) 10/01/16 22:00 Urine Bilirubin Negative (NEGATIVE) 10/01/16 22:00 Urine Urobilinogen Normal (NORMAL) 10/01/16 22:00 Ur Leukocyte Esterase Negative (NEGATIVE) 10/01/16 22:00 Urine RBC 0-3 /HPF (NEGATIVE) 10/01/16 22:00 Urine WBC 0-3 /HPF (NEGATIVE) 10/01/16 22:00 Ur Squamous Epith Cells Rare /HPF (NEGATIVE) 10/01/16 22:00 Urine Bacteria Negative /HPF (NEGATIVE) 10/01/16 22:00 Ur Culture Indicated? No/not indicated 10/01/16 22:00 Urine Opiates Screen Negative (NEG=<300) 10/01/16 22:00 Urine Methadone Screen Negative (NEG=<300) 10/01/16 22:00 Ur Barbiturates Screen Negative (NEG=<200) 10/01/16 22:00 Ur Phencyclidine Scrn Negative (NEG=<25) 10/01/16 22:00 Ur Amphetamines Screen Negative (NEG=<1000) 10/01/16 22:00 U Benzodiazepines Scrn Negative (NEG=<200) 10/01/16 22:00 Urine Cocaine Screen Negative (NEG=<300) 10/01/16 22:00 U Marijuana (THC) Screen Negative (NEG=<50) 10/01/16 22:00 - Plan (1) Acute thromboembolic cerebrovascular accident Status: Acute Plan: HOLD PLAVIX, ELIQUIS FOR PEG TUBE PLACEMENT; CONTINUE LOVENOX, CONTINUE TO MONITOR. (2) Impaired swallowing Status: Acute Plan: CONSULT DR. HINOJOSA FOR PEG TUBE PLACEMENT, HOLD NPO, CONTINUE NG TUBE WITH TUBE FEEDINGS, CONTINUE PERIPHERAL TPN, MONITOR. (3) Leukocytosis Status: Acute Qualifiers: Leukocytosis type: unspecified Qualified Code(s): D72.829 - Elevated white blood cell count, unspecified Plan: OBTAIN CHEST XRAY TODAY, CONTINUE ROCEPHIN, MONITOR. (4) Hyponatremia Status: Acute Plan: CONTINUE IV FLUIDS, MONTIOR LABS. (5) Right hemiplegia Status: Acute Plan: ABOVE. (6) Hypoalbuminemia Status: Acute Plan: CONTINUE ALBUMIN IV DAILY, MONITOR. (7) HTN (hypertension) Status: Chronic Qualifiers: Hypertension type: essential hypertension Qualified Code(s): I10 - Essential (primary) hypertension Plan: CONTINUE CLONIDINE PATCH, MONITOR. (8) Atrial fibrillation Status: Acute Qualifiers: Atrial fibrillation type: A Plan: CONTINUE TO MONITOR ON TELEMETRY. (9) Diabetes mellitus, type II Status: Chronic Qualifiers: Diabetes mellitus complication status: with hyperglycemia Diabetes mellitus complication detail: D Diabetic retinopathy severity: D Proliferative retinopathy type: P Diabetes mellitus macular edema: D Diabetes mellitus fpc insulin use: without fpc use Laterality: L Chronic kidney disease stage: C Qualified Code(s): E11.65 - Type 2 diabetes mellitus with hyperglycemia (10) COPD (chronic obstructive pulmonary disease) Status: Chronic Qualifiers: COPD type: unspecified COPD Chronic bronchitis type: C Emphysema type: E Qualified Code(s): J44.9 - Chronic obstructive pulmonary disease, unspecified
--- NOTE | 2016-10-08 15:20 | RAD ---
HISTORY: Elevated WBC Study: Single view of the chest. Comparison: None. Findings: Cardiomegaly and pulmonary edema like pattern. No focal consolidations, pleural effusions or pneumot horax. Osseous structures demonstrate no acute abnormality. IMPRESSION: 1. Cardiomegaly and pulmonary edema like pattern. Reported By:
[2016-10-08] MEDS: NS 1000 ML 1,000 ML IV SCH ×2 (19:57→21:19)
[2016-10-08] MEDS: SNACK - Diabetic Appropriate PO SCH (21:18)
[2016-10-08] MEDS: LANTUS SC SCH (21:22)
[2016-10-09] MEDS: CLINIMIX 4.25 %/10 % 1,000 ML with MVI INJ (ADULT) 10 ML, TRACE ELEMENTS INJ 10 ML, TPN... IV SCH ×18 (02:19→21:06)
[2016-10-09] MEDS: HUMULIN R SUBCUT PRN ×3 (05:13→21:04)
[2016-10-09 06:23] LABS: BASOPHILS # (AUTO) 0.1 X10^3/uL (0.0-0.1); BASOPHILS % (AUTO) 0.6 % (0.2-1.0); EOSINOPHILS # (AUTO) 0.4 x10^3/uL (0.0-0.2); EOSINOPHILS % (AUTO) 3.1 % (0.9-2.9); HEMATOCRIT 33.2 % (36.0-47.0); MEAN CORPUSCULAR VOLUME 87.9 fL (80.0-100.0); MEAN PLATELET VOLUME 9.9 fL (7.4-11.0); MONOCYTES # (AUTO) 1.3 x10^3/uL (0.3-0.8); MONOCYTES % (AUTO) 10.1 % (0.0-13.0); NEUTROPHILS # (AUTO) 10.3 x10^3/uL (2.2-4.8); NEUTROPHILS % (AUTO) 78.2 % (42.0-75.0); PLATELET COUNT 207 X10^3/uL (150.0-450.0); RED BLOOD COUNT 3.78 X10^6/uL (3.5-5.4); WHITE BLOOD COUNT 13.1 X10^3/uL (3.6-10.0)
[2016-10-09 06:52] LABS: ALBUMIN 3.3 g/dL (3.4-5.0); CALCIUM 9.1 mg/dL (8.5-10.1); COR CA(FOR HYPOALB) 9.7 mg/dL (8.5-10.1); CREATININE 1.34 mg/dL (0.55-1.02); TOTAL PROTEIN 6.6 g/dL (6.4-8.2)
[2016-10-09] MEDS: LOVENOX INJ 80 MG SYR SC SCH ×2 (08:10→21:03)
[2016-10-09] MEDS: ROCEPHIN VIAL 1 GM 1 GM in NS 50 ML IV + SPIKE MINIBAG* 50 ML IV SCH (08:11)
[2016-10-09] MEDS: ALBUMIN HUMAN 25%- 100ML 100 ML IV SCH (08:11)
--- NOTE | 2016-10-09 15:41 | PCM.PROG ---
Progress Note - Progress Note for Day of Date: 10/09/16 - Subjective Subjective: PATIENT IS RESTING WITH EYES CLOSED. NO FAMILY PRESENT. SHE CONTINUES ON IV PROCALAMINE AND ALBUMIN FOR PARENTERAL NUTRITION DUE TO PROLONGED NPO STATUS DUE TO INABILITY TO FOLLOW CUES FOR SWALLOWING. TUBE FEEDINGS OF GLUCERNA CONTINUES AT 20MLS/HR. RIGHT HEMISPATIAL NEGLECT CONTINUES TO IMPROVE. WE ARE AWAITING GI CONSULT WITH POSSIBLE PEG PLACEMENT ON MONDAY OF THIS WEEK. CBC WNL EXCEPT: WBC 13.1, H/H 11.0/33.2. CMP WNL EXCEPT: BUN/CREAT 46/1.34, GFR 40, GLUCOSE 284. WE WILL CONTINUE TUBE FEEDINGS OF GLUCERNA AT 20MLS/HR WITH RESIDUAL CHECKS EVERY 4 HOURS. WE WILL CONTINUE TO HOLD PLAVIX AND ELIQUIS UNTIL PEG TUBE PLACEMENT, CONTINUE LOVENOX, PROCALAMINE, ALBUMIN, AND CLONIDINE PATCH. WE WILL CONTINUE TO MONITOR AND FOLLOW UP IN AM WITH LABS. - Past Medical Family Social History Past Med/Fam/Surg Hx: No changes since H&P Allergies: Allergies No Known Drug Allergy Allergy (Verified 10/01/16 23:50) - Review of Systems ROS: No change since H&P - Vital Signs and I&O's Vital Signs: Temperature 98.2 F Pulse Rate [Right Brachial] 100 Respiratory Rate 34 Blood Pressure [Left Arm] 121/76 Blood Pressure [Left Calf] 144/88 Blood Pressure [Right Arm] 109/83 Blood Pressure 187/83 O2 Sat by Pulse Oximetry 100 Intake and Output: Intake & Output 10/07/16 10/08/16 10/09/16 10/10/16 11:59 11:59 11:59 11:59 Intake Total 2160 3270 4064 1150 Output Total 1600 2600 2500 600 Balance 220 023 8196 550 - Physical Exam Oriented: Unable to test Eyes: Normal. negative: Discharge, Redness Ear: Normal. negative: Swelling, Ecchymosis, Hemotypanum, Abrasion, Laceration Nose: Normal. negative: Injected, Discharge, Blood Throat: Dry. negative: Tonsillar Hypertrophy, Red, Exudate Respiratory: Normal Cardiovascular: Irregular (Irreg, irreg). negative: Murmur, Edema : Normal. negative: Dysuria, Hematuria, Frequency, Discharge, Bleeding, Auscultation: Bowel Sounds: Decreased. negative: Bruit Palpation: Normal. negative: Spleen Enlarged, Liver Enlarged, Mass Pulsatile Tenderness: Normal. negative: Rebound, Guarding, Rigidity Skin: Decreased Turgur. negative: Diaphoresis, Wound, Bruising, Ecchymosis Musculoskeletal: Instability (Non-ambulatory) Mood Description: Flat Affect: Flat Speech Pattern: Unclear - Laboratory and Diagnostics Result Diagrams: 10/09/16 05:45 10/09/16 05:45 Labs: Laboratory WBC 13.1 X10^3/uL (3.6-10.0) H 10/09/16 05:45 RBC 3.78 X10^6/uL (3.5-5.4) 10/09/16 05:45 Hgb 11.0 g/dL (12.0-16.0) L 10/09/16 05:45 Hct 33.2 % (36.0-47.0) L 10/09/16 05:45 MCV 87.9 fL (80.0-100.0) 10/09/16 05:45 MCH 29.0 pg (27.0-34.0) 10/09/16 05:45 MCHC 33.0 g/dL (33.0-35.0) 10/09/16 05:45 RDW 13.0 % (11.6-16.5) 10/09/16 05:45 Plt Count 207 X10^3/uL (150.0-450.0) 10/09/16 05:45 Plt Count Comment Adequate (ADEQUATE) 10/01/16 20:25 MPV 9.9 fL (7.4-11.0) 10/09/16 05:45 Neut % 78.2 % (42.0-75.0) H 10/09/16 05:45 Lymph % 8.0 % (21.0-51.0) L 10/09/16 05:45 [place] % 10.1 % (0.0-13.0) 10/09/16 05:45 Eos % 3.1 % (0.9-2.9) H 10/09/16 05:45 Baso % 0.6 % (0.2-1.0) 10/09/16 05:45 Neut # 10.3 x10^3/uL (2.2-4.8) H 10/09/16 05:45 Lymph # 1.0 X10^3/uL (1.3-2.9) L 10/09/16 05:45 [place]phill # 1.3 x10^3/uL (0.3-0.8) H 10/09/16 05:45 Eos # 0.4 x10^3/uL (0.0-0.2) H 10/09/16 05:45 Baso # 0.1 X10^3/uL (0.0-0.1) 10/09/16 05:45 Absolute Nucleated RBC 0.0 /100WBC 10/09/16 05:45 Total Counted 100 10/01/16 20:25 Neutrophils % (Manual) 97 % (39-76) H 10/01/16 20:25 Lymphocytes % (Manual) 3 % (13-43) L 10/01/16 20:25 Plt Morphology Comment Normal (NORMAL) 10/01/16 20:25 RBC Morphology Normal (NORMAL) 10/01/16 20:25 INR Target Range - 10/01/16 20:25 INR 1.09 (0.8-1.3) 10/01/16 20:25 PTT 25.3 SECONDS (22.9-36.5) 10/01/16 20:25 PTT Comment - 10/01/16 20:25 Fibrinogen 438 mg/dL (239-489) 10/02/16 05:25 Sodium 133 mmol/L (136-145) L 10/09/16 05:45 Corrected Sodium 137 mmol/L (136-145) 10/09/16 05:45 Potassium 4.3 mmol/L (3.5-5.1) 10/09/16 05:45 Chloride 99 mmol/L (98-107) 10/09/16 05:45 Carbon Dioxide 24.0 mmol/L (21-32) 10/09/16 05:45 BUN 46 mg/dL (7-18) H 10/09/16 05:45 Creatinine 1.34 mg/dL (0.55-1.02) H 10/09/16 05:45 Est GFR (MDRD) Af Amer 48 (>60) L 10/09/16 05:45 Est GFR (MDRD) Non-Af 40 (>60) L 10/09/16 05:45 Glucose 284 mg/dL (65-99) H 10/09/16 05:45 Hemoglobin A1c 10.1 % (4.5-6.2) H 10/02/16 05:25 Calcium 9.1 mg/dL (8.5-10.1) 10/09/16 05:45 Corrected Calcium 9.7 mg/dL (8.5-10.1) 10/09/16 05:45 Phosphorus 2.6 mg/dL (2.6-4.7) 10/02/16 05:25 Magnesium 2.0 mg/dL (1.7-2.9) 10/04/16 05:35 Total Bilirubin 0.50 mg/dL (0.2-1.0) 10/09/16 05:45 Direct Bilirubin 0.15 mg/dL (0-0.2) 10/03/16 06:50 Indirect Bilirubin 0.35 mg/dL (0.2-0.8) 10/03/16 06:50 AST 37 Units/L (15-37) 10/09/16 05:45 ALT 55 Units/L (12-78) 10/09/16 05:45 Alkaline Phosphatase 110 Units/L (46-116) 10/09/16 05:45 Creatine Kinase 60 Units/L (26-192) 10/01/16 20:25 CK-MB (CK-2) 1.0 ng/mL (0-4.0) 10/01/16 20:25 CK/CKMB % Calc 1.7 % (<4) 10/01/16 20:25 Troponin I < 0.02 ng/mL (0-1.5) 10/01/16 20:25 Total Protein 6.6 g/dL (6.4-8.2) 10/09/16 05:45 Albumin 3.3 g/dL (3.4-5.0) L 10/09/16 05:45 Globulin 3.3 g/dL (2.5-4.5) 10/09/16 05:45 Albumin/Globulin Ratio 1.0 Ratio (1.1-2.1) L 10/09/16 05:45 Triglycerides 164 mg/dL (0-150) H 10/02/16 05:25 Cholesterol 215 mg/dL (0-200) H 10/02/16 05:25 LDL Cholesterol, Calc 147 mg/dL (0-100) H 10/02/16 05:25 HDL Cholesterol 35 mg/dL (40-60) L 10/02/16 05:25 Cholesterol/HDL Ratio 6.1 (0.0-5.0) H 10/02/16 05:25 Amylase 30 Units/L (25-115) 10/02/16 05:25 Lipase 108 Units/L (73-393) 10/02/16 05:25 Specimen Type Catherized urine 10/01/16 22:00 Urine Color Yellow (YELLOW) 10/01/16 22:00 Urine Appearance Clear (CLEAR) 10/01/16 22:00 Urine pH 5.0 (5.0 - 8.0) 10/01/16 22:00 Ur Specific Ralph 1.015 (1.000-1.030) 10/01/16 22:00 Urine Protein 2+ (NEGATIVE) 10/01/16 22:00 Urine Glucose (UA) 4+ (NEGATIVE) 10/01/16 22:00 Urine Ketones 2+ (NEGATIVE) 10/01/16 22:00 Urine Occult Blood 1+ (NEGATIVE) 10/01/16 22:00 Urine Nitrite Negative (NEGATIVE) 10/01/16 22:00 Urine Bilirubin Negative (NEGATIVE) 10/01/16 22:00 Urine Urobilinogen Normal (NORMAL) 10/01/16 22:00 Ur Leukocyte Esterase Negative (NEGATIVE) 10/01/16 22:00 Urine RBC 0-3 /HPF (NEGATIVE) 10/01/16 22:00 Urine WBC 0-3 /HPF (NEGATIVE) 10/01/16 22:00 Ur Squamous Epith Cells Rare /HPF (NEGATIVE) 10/01/16 22:00 Urine Bacteria Negative /HPF (NEGATIVE) 10/01/16 22:00 Ur Culture Indicated? No/not indicated 10/01/16 22:00 Urine Opiates Screen Negative (NEG=<300) 10/01/16 22:00 Urine Methadone Screen Negative (NEG=<300) 10/01/16 22:00 Ur Barbiturates Screen Negative (NEG=<200) 10/01/16 22:00 Ur Phencyclidine Scrn Negative (NEG=<25) 10/01/16 22:00 Ur Amphetamines Screen Negative (NEG=<1000) 10/01/16 22:00 U Benzodiazepines Scrn Negative (NEG=<200) 10/01/16 22:00 Urine Cocaine Screen Negative (NEG=<300) 10/01/16 22:00 U Marijuana (THC) Screen Negative (NEG=<50) 10/01/16 22:00 - Plan (1) Acute thromboembolic cerebrovascular accident Status: Acute Plan: HOLD PLAVIX, ELIQUIS FOR PEG TUBE PLACEMENT; CONTINUE LOVENOX, CONTINUE TO MONITOR. (2) Impaired swallowing Status: Acute Plan: CONSULT DR. HINOJOSA FOR PEG TUBE PLACEMENT, HOLD NPO, CONTINUE NG TUBE WITH TUBE FEEDINGS, CONTINUE PERIPHERAL TPN, MONITOR. (3) Leukocytosis Status: Acute Qualifiers: Leukocytosis type: unspecified Qualified Code(s): D72.829 - Elevated white blood cell count, unspecified Plan: CONTINUE ROCEPHIN, MONITOR. (4) Hyponatremia Status: Acute Plan: CONTINUE IV FLUIDS, MONTIOR LABS. (5) Right hemiplegia Status: Acute Plan: ABOVE. (6) Hypoalbuminemia Status: Acute Plan: CONTINUE ALBUMIN IV DAILY, MONITOR. (7) HTN (hypertension) Status: Chronic Qualifiers: Hypertension type: essential hypertension Qualified Code(s): I10 - Essential (primary) hypertension Plan: CONTINUE CLONIDINE PATCH, MONITOR. (8) Atrial fibrillation Status: Acute Qualifiers: Atrial fibrillation type: A Plan: CONTINUE TO MONITOR ON TELEMETRY. (9) Diabetes mellitus, type II Status: Chronic Qualifiers: Diabetes mellitus complication status: with hyperglycemia Diabetes mellitus complication detail: D Diabetic retinopathy severity: D Proliferative retinopathy type: P Diabetes mellitus macular edema: D Diabetes mellitus prison insulin use: without prison use Laterality: L Chronic kidney disease stage: C Qualified Code(s): E11.65 - Type 2 diabetes mellitus with hyperglycemia (10) COPD (chronic obstructive pulmonary disease) Status: Chronic Qualifiers: COPD type: unspecified COPD Chronic bronchitis type: C Emphysema type: E Qualified Code(s): J44.9 - Chronic obstructive pulmonary disease, unspecified
[2016-10-09] MEDS ORDERED: ROCEPHIN VIAL 1 GM 1 GM in NS 50 ML IV + SPIKE MINIBAG* 50 ML IV SCH (15:52)
[2016-10-09] MEDS: NS 1000 ML 1,000 ML IV SCH (21:05)
[2016-10-09] MEDS: SNACK - Diabetic Appropriate PO SCH (21:05)
[2016-10-09] MEDS: LANTUS SC SCH (21:05)
[2016-10-10] MEDS: CLINIMIX 4.25 %/10 % 1,000 ML with MVI INJ (ADULT) 10 ML, TRACE ELEMENTS INJ 10 ML, TPN... IV SCH ×6 (01:29)
[2016-10-10] MEDS ORDERED: MORPHINE SULFATE INJ 2 MG IVP ONE (01:57)
[2016-10-10] MEDS ORDERED: MORPHINE SULFATE INJ 2 MG ONE (01:58)
[2016-10-10] MEDS ORDERED: ATIVAN INJ 2 MG VIAL ONE (02:17)
[2016-10-10] MEDS ORDERED: ATIVAN INJ 2 MG VIAL IVP ONE (02:17)
--- NOTE | 2016-10-10 03:28 | DR.DECEASE ---
Form - Admission Diagnosis Patient Problems: Problems Acute thromboembolic cerebrovascular accident (Acute) I63.9 Atrial fibrillation (Acute) I48.91 Atrial fibrillation with rapid ventricular response (Acute) I48.91 Hyperosmolar non-ketotic state in patient with type 2 diabetes mellitus (Acute) E11.01 Hypoalbuminemia (Acute) E88.09 Hypomagnesemia (Acute) E83.42 Hyponatremia (Acute) E87.1 Impaired swallowing (Acute) R13.10 Leukocytosis (Acute) D72.829 Right hemiplegia (Acute) G81.91 COPD (chronic obstructive pulmonary disease) (Chronic) J44.9 Cataracts, bilateral (Chronic) H26.9 Diabetes mellitus, type II (Chronic) E11.9 HTN (hypertension) (Chronic) I10 - Discharge Diagnosis Patient Problems: Current Active Problems Problem Status Onset Acute thromboembolic cerebrovascular accident Acute Atrial fibrillation Acute Atrial fibrillation with rapid ventricular response Acute Hyperosmolar non-ketotic state in patient with type 2 diabetes mellitus Acute Hypoalbuminemia Acute Hypomagnesemia Acute Hyponatremia Acute Impaired swallowing Acute Leukocytosis Acute Right hemiplegia Acute - Labs Result Diagrams: 10/09/16 05:45 10/09/16 05:45 - Hospital Course Hospital Course: Patient was admitted on 10/01/2016 due to CVA - Expiration Expiration Date: 10/10/16 Expiration Time: 02:36 Time Pronounced: 03:00 Preliminary Cause of : CARDIO-PULMONARY ARREST
[2016-10-10 04:11] VITALS: BP 81/46
== END 2016-10-10 04:36 | disposition expired | DRG 64 ==
LOC: ER 20:25 → ICU 23:53
PROVIDERS: ADMIT Obstetrics & Gynecology Obstetrics; ATTEND Internal Medicine
PROC: 0DH67UZ Insertion of Feeding Device into Stomach, Via Natural or Artificial Opening (ICD-10-PCS; principal; 2016-10-07)
DX: I63.8 Other cerebral infarction (principal); I46.8 Cardiac arrest due to other underlying condition; E11.01 Type 2 diabetes mellitus with hyperosmolarity with coma; E87.1 Hypo-osmolality and hyponatremia; G81.91 Hemiplegia, unspecified affecting right dominant side; R29.810 Facial weakness; R47.89 Other speech disturbances; I48.91 Unspecified atrial fibrillation; E11.65 Type 2 diabetes mellitus with hyperglycemia; D72.828 Other elevated white blood cell count; J44.9 Chronic obstructive pulmonary disease, unspecified; R13.13 Dysphagia, pharyngeal phase; E88.09 Other disorders of plasma-protein metabolism, not elsewhere classified; R47.01 Aphasia; R94.31 Abnormal electrocardiogram [ECG] [EKG]; R26.89 Other abnormalities of gait and mobility; Z66 Do not resuscitate; Z91.81 History of falling; R13.10 Dysphagia, unspecified
CPT/HCPCS: 36415; 70450; 70551; 71010; 72125; 74000; 80048; 80053; 80061; 80076; 80307; 81001; 82150; 82550; 82553; 82947; 83036; 83690; 83735; 84100; 84484; 85025; 85384; 85610; 85730; 92523; 93005; 96365; 96374; 99285; A4222; B4189; P9047; G0434; J0696; J1650; J1815; J2060; J2270; J3490